=== PATIENT | male | born 1945 | race Hispanic/Latino ===

== ENCOUNTER 2016-06-23 10:06 | Emergency (ER) | payer MEDICARE, MEDICAID ==
[~2016-06-23] VITALS: Ht 172.7 cm; Wt 66.2 kg
[~2016-06-23 10:06] MED LIST: ASPI81TA3 OR; ASPI81TA83 OR; ATEN25TA OR; CHAN0.5P2 PO; CIPR500S PO; COZA50TA18 OR; Centrum Silver PO; VITAMIN D50000 UNT OR
[2016-06-23 11:51] VITALS: BP 142/82
== END 2016-06-23 12:05 | disposition home or self-care (01) ==
LOC: M ED 11:07
DX: H61.21 Impacted cerumen, right ear (principal); F17.200 Nicotine dependence, unspecified, uncomplicated; Z86.73 Personal history of transient ischemic attack (TIA), and cerebral infarction without residual deficits; I25.2 Old myocardial infarction; E78.00 Pure hypercholesterolemia, unspecified; I10 Essential (primary) hypertension; Z86.718 Personal history of other venous thrombosis and embolism; K52.9 Noninfective gastroenteritis and colitis, unspecified; Z79.82 Long term (current) use of aspirin; Z79.899 Other long term (current) drug therapy

== ENCOUNTER 2016-07-12 10:20 | Emergency (ER) | payer MEDICARE, MEDICAID ==
[~2016-07-12] VITALS: Ht 172.7 cm; Wt 68.9 kg
--- NOTE | 2016-07-12 11:57 | REP ---
LEFT HAND SERIES, COMPLETE: 07/12/2016. Clinical history: Trauma, contusion left hand. Findings: Four views are provided. No prior study. The distal radius and ulna are without fracture or focal lesion. Some minor degenerative changes of the radiocarpal articulation in the distal radioulnar joint. Carpal bones and their joint spaces show normal alignment. I see no subluxation or dislocation and some minor degenerative changes are seen. CMC joint of the thumb with minimal degenerative change. Metatarsals are without fracture. There are some degenerative changes of the first MCP joint minimally, the second and fifth DIP joints show narrowing and small spurs. No fracture or avulsion. Soft tissue swelling over the dorsal aspect of the wrist and hand noted. Impression: 1. Some minor degenerative change without fracture, avulsion, subluxation or foreign body. There is some minor soft tissue swelling over the dorsal aspect of the hand. Signed by Carlyle Zhao MD 07/12/2016 08:22 P
[2016-07-12] MEDS ORDERED: TYLE325C PO (12:19)
[2016-07-12 12:47] VITALS: BP 175/91
== END 2016-07-12 12:49 | disposition home or self-care (01) ==
LOC: M ED 11:31
DX: S60.222A Contusion of left hand, initial encounter (principal); W22.8XXA Striking against or struck by other objects, initial encounter; Y92.019 Unspecified place in single-family (private) house as the place of occurrence of the external cause; Y93.89 Activity, other specified; Y99.8 Other external cause status; F17.210 Nicotine dependence, cigarettes, uncomplicated; Z79.82 Long term (current) use of aspirin; Z79.899 Other long term (current) drug therapy; I25.2 Old myocardial infarction; Z86.718 Personal history of other venous thrombosis and embolism; K52.9 Noninfective gastroenteritis and colitis, unspecified

== ENCOUNTER → 2016-08-25 | Outpatient (CLI) | payer MEDICARE, MEDICAID ==
[~2016-08-25] MED LIST changes: +TYLE325C PO
[2016-08-25 09:35] LABS: ALBUMIN 3.2 GM/DL (3.2-5.2); ALBUMIN/GLOBULIN RATIO 1.03 (1.00-1.93); ALKALINE PHOSPHATASE 109 U/L (45-117); ALT/SGPT 33 U/L (12-78); ANION GAP 7 MEQ/L (8-16); AST/SGOT 30 U/L (15-37); BILIRUBIN,TOTAL 0.5 MG/DL (0.2-1.0); BLOOD UREA NITROGEN 13 MG/DL (7-18); CARBON DIOXIDE LEVEL 28 MEQ/L (21-32); CHLORIDE LEVEL 109 MEQ/L (98-107); CHOLESTEROL LEVEL 87 MG/DL (<200); GLOMERULAR FILTRATION RATE > 60.0 (>49); GLUCOSE, FASTING 83 MG/DL (80-110); POTASSIUM SERUM 4.3 MEQ/L (3.5-5.1); SODIUM LEVEL 144 MEQ/L (136-145); TOTAL PROTEIN 6.3 GM/DL (6.4-8.2); TRIGLYCERIDES LEVEL 67 MG/DL (<150)
[2016-08-25 10:00] LABS: MEAN CORPUSCULAR HEMOGLOBIN 32.1 pg (27.0-33.0); MEAN CORPUSCULAR HGB CONC 33.3 g/dl (32.0-36.5); MEAN CORPUSCULAR VOLUME 96.4 fl (80.0-96.0)
[2016-08-25 10:01] LABS: WHITE BLOOD COUNT 6.7 K/mm3 (4.0-10.0)
[2016-08-25 10:02] LABS: BASO % 0.9 % (0.0-1.0); EOS # 0.8 K/mm3 (0.0-0.50); EOS % 12.6 % (0.0-3.0); NEUTROPHILS % 40.7 % (36.0-66.0)
[2016-08-25 10:03] LABS: BASO # 0.1 K/mm3 (0.0-0.2); LYMPH # 2.5 K/mm3 (1.5-4.5); NEUTROPHILS # 2.7 K/mm3 (1.8-7.7)
[2016-08-25 10:04] LABS: MONO # 0.4 K/mm3 (0.0-0.8)
== END ==
LOC: M LAB 08:33
PROVIDERS: ATTEND Physician Assistant Medical
DX: I25.9 Chronic ischemic heart disease, unspecified (principal)

== ENCOUNTER → 2016-08-30 | Outpatient (CLI) | payer MEDICARE, MEDICAID ==
--- NOTE | 2016-09-02 09:16 | REP ---
MR LUMBAR SPINE WITHOUT CONTRAST: HISTORY: Back pain . COMPARISON: 12/25/2014 signal intensity on T2-weighted images is present in the L3-4 and L5-S1 intervertebral discs, the discs are decreased in height. These findings are consistent with disc degeneration. There is no disc bulge or herniation at the L1-2 level. The L1 nerves exit the neural foraminal without compression. A diffuse disc bulge is present at the L2-3 level. There is minimal compression at the thecal sac. There is hypertrophy of the posterior articulating facets. The L2 nerves exit the neural foramina without compression. A diffuse disc bulge is present at the L3-4 level. There is minimal compression of the thecal sac. There is hypertrophy of the posterior articulating facets. The L3 nerves exit the neural foramina without compression. A diffuse disc bulge is present at the L4-5 level. There is hypertrophy of the ligamenta flava and posterior articulating facets. These findings produce minimal central canal stenosis. The L4 nerves exit the neural foraminal without compression. A diffuse disc bulge and small central disc extrusion are present at the L5-S1 level. The disc extrusion is decreased in size. There is minimal compression of the thecal sac and S1 nerves as the exit the thecal sac. There is hypertrophy of the posterior articulating facets. There is compression of the L5 nerves in the neural foramina. The conus medullaris is normal in appearance terminating at the level of the L1-1 intervertebral disc. Increased signal intensity on T2-weighted images is present in the endplates of the L5 and S1 vertebral bodies. This represents degenerative change. IMPRESSION: 1. Diffuse disc bulges at the L2-3 and L3-4 levels with minimal thecal sac compression. 2. Minimal central canal stenosis at the L4-5 level secondary to disc bulge, ligamentous and facet hypertrophy. 3. Diffuse disc bulge and small central disc extrusion at the L5-S1 level with minimal compression of the thecal sac and S1 nerves as they exit the thecal sac. There is compression of the L5 nerves in the neural foramina. The disc extrusion is decreased in size. The L5 nerve compression is a new finding. Signed by Lake Deluna MD 09/02/2016 09:26 A
== END ==
LOC: M RAD 11:35
PROVIDERS: ATTEND Physician Assistant Medical
DX: M51.26 Other intervertebral disc displacement, lumbar region (principal)

== ENCOUNTER → 2016-11-10 | Outpatient (CLI) | payer MEDICARE, MEDICAID ==
[2016-11-10 09:02] LABS: BASO % 0.7 % (0.0-1.0); EOS # 1.2 K/mm3 (0.0-0.50); EOS % 14.6 % (0.0-3.0); LYMPH # 2.2 K/mm3 (1.5-4.5); LYMPH % 24.3 % (24.0-44.0); MEAN CORPUSCULAR HEMOGLOBIN 32.9 pg (27.0-33.0); MEAN CORPUSCULAR HGB CONC 33.9 g/dl (32.0-36.5); MEAN CORPUSCULAR VOLUME 97.2 fl (80.0-96.0); MONO # 0.6 K/mm3 (0.0-0.8); MONO % 6.8 % (0.0-5.0); NEUTROPHILS # 4.2 K/mm3 (1.8-7.7); NEUTROPHILS % 51.2 % (36.0-66.0); RED CELL DISTRIBUTION WIDTH 13.9 % (11.5-14.5); WHITE BLOOD COUNT 8.2 K/mm3 (4.0-10.0)
[2016-11-10 09:36] LABS: ALBUMIN 3.2 GM/DL (3.2-5.2); ALBUMIN/GLOBULIN RATIO 1.03 (1.00-1.93); ALKALINE PHOSPHATASE 136 U/L (45-117); ALT/SGPT 36 U/L (12-78); ANION GAP 3 MEQ/L (8-16); AST/SGOT 30 U/L (15-37); BILIRUBIN,TOTAL 0.3 MG/DL (0.2-1.0); BLOOD UREA NITROGEN 21 MG/DL (7-18); CALCIUM LEVEL 8.4 MG/DL (8.8-10.2); CARBON DIOXIDE LEVEL 32 MEQ/L (21-32); CHLORIDE LEVEL 111 MEQ/L (98-107); CHOLESTEROL LEVEL 60 MG/DL (<200); CREATININE FOR GFR 1.06 MG/DL (0.70-1.30); GLOMERULAR FILTRATION RATE > 60.0 (>49); GLUCOSE, FASTING 68 MG/DL (80-110); POTASSIUM SERUM 4.5 MEQ/L (3.5-5.1); SODIUM LEVEL 146 MEQ/L (136-145); TOTAL PROTEIN 6.3 GM/DL (6.4-8.2); TRIGLYCERIDES LEVEL 56 MG/DL (<150)
== END ==
LOC: M LAB 08:12
PROVIDERS: ATTEND Physician Assistant Medical
DX: I10 Essential (primary) hypertension (principal)

== ENCOUNTER → 2017-01-20 | Outpatient (CLI) | payer MEDICARE, MEDICAID ==
[2017-01-20 13:48] LABS: BASO # 0.1 10^3/uL (0.0-0.2); BASO % 1.3 % (0.0-1.0); EOS # 0.8 10^3/uL (0.0-0.50); EOS % 11.2 % (0.0-3.0); IMMATURE GRANULOCYTE % 0.1 % (0-0); LYMPH # 2.1 10^3/uL (1.5-4.5); LYMPH % 28.6 % (24.0-44.0); MEAN CORPUSCULAR HEMOGLOBIN 32.6 pg (27.0-33.0); MEAN CORPUSCULAR HGB CONC 33.4 g/dl (32.0-36.5); MEAN CORPUSCULAR VOLUME 97.7 fl (80.0-96.0); MONO # 0.7 10^3/uL (0.0-0.8); MONO % 9.4 % (0.0-5.0); NEUTROPHILS # 3.7 10^3/uL (1.8-7.7); NEUTROPHILS % 49.4 % (36.0-66.0); WHITE BLOOD COUNT 7.4 10^3/uL (4.0-10.0)
[2017-01-20 14:42] LABS: ALBUMIN 3.4 GM/DL (3.2-5.2); ALKALINE PHOSPHATASE 130 U/L (45-117); ALT/SGPT 37 U/L (12-78); ANION GAP 6 MEQ/L (8-16); AST/SGOT 39 U/L (15-37); BILIRUBIN,TOTAL 0.5 MG/DL (0.2-1.0); BLOOD UREA NITROGEN 16 MG/DL (7-18); CALCIUM LEVEL 8.3 MG/DL (8.8-10.2); CARBON DIOXIDE LEVEL 28 MEQ/L (21-32); CHLORIDE LEVEL 108 MEQ/L (98-107); CHOLESTEROL LEVEL 56 MG/DL (<200); CREATININE FOR GFR 0.91 MG/DL (0.70-1.30); GLOMERULAR FILTRATION RATE > 60.0 (>49); GLUCOSE, FASTING 77 MG/DL (80-110); POTASSIUM SERUM 4.8 MEQ/L (3.5-5.1); SODIUM LEVEL 142 MEQ/L (136-145); THYROXINE (T4) 6.7 UG/DL (4.5-12.0); TOTAL PROTEIN 6.8 GM/DL (6.4-8.2); TRIGLYCERIDES LEVEL 61 MG/DL (<150)
== END ==
LOC: M LAB 12:42
PROVIDERS: ATTEND Physician Assistant Medical
DX: I10 Essential (primary) hypertension (principal)

== ENCOUNTER → 2017-01-21 | Outpatient (CLI) | payer MEDICARE, MEDICAID ==
--- NOTE | 2017-01-21 12:13 | REP ---
LIMITED PELVIC ULTRASOUND: HISTORY: Right groin pain. A small right inguinal hernia is present. The hernia contains peritoneal fat. The hernia protrudes 3 to 4 cm into the inguinal canal with Valsalva maneuver. Several small lymph nodes are present. IMPRESSION: There is a small inguinal hernia containing peritoneal fat. Signed by Lake Deluna MD 01/21/2017 12:17 P
== END ==
LOC: M RAD 11:03
PROVIDERS: ATTEND Physician Assistant Medical
DX: K40.90 Unilateral inguinal hernia, without obstruction or gangrene, not specified as recurrent (principal)

== ENCOUNTER 2017-03-13 08:21 | Day surgery (SDC) | payer MEDICARE, MEDICAID ==
[~2017-03-13] VITALS: Ht 172.7 cm; Wt 65.3 kg
[~2017-03-13 08:21] MED LIST changes: +CENTTAB36 PO; +LOSA50TA20 PO; +PROPOFOL 200 MG/20 ML VIAL As Ordered ONE
[2017-03-13] MEDS ORDERED: NS 1,000 ML IV ONE (09:00)
--- NOTE | 2017-03-13 09:46 | ROOR ---
Patient Name: Srinath Wild Procedure Date: 03/13/2017 9:24 AM Date of : 1945 Age: 71 Room: [facility] Gender: Male Note Status: Finalized Procedure: Colonoscopy Indications: Screening for colorectal malignant neoplasm Providers: Hill SANTIAGO MD Referring MD: KAMRAN ORTEGA Requesting Provider: Medicines: Monitored Anesthesia Care Complications: No immediate complications. Procedure: Pre-Anesthesia Assessment: - The heart rate, respiratory rate, oxygen saturations, blood pressure, adequacy of pulmonary ventilation, and response to care were monitored throughout the procedure. The Colonoscope was introduced through the anus and advanced to the terminal ileum, with identification of the appendiceal orifice and IC valve. The colonoscopy was performed without difficulty. The patient tolerated the procedure well. The quality of the bowel preparation was adequate. Findings: The perianal and digital rectal examinations were normal. Mild diverticulosis and small internal hemorrhoids. The entire examined colon appeared normal on direct and retroflexion views. Impression: - Mild diverticulosis and small internal hemorrhoids. - The entire examined colon is normal on direct and retroflexion views. - No specimens collected. Recommendation: - Repeat colonoscopy in 10 years for screening purposes. Hill Santiago MD Hill SANTIAGO MD 03/13/2017 9:46:30 AM This report has been signed electronically. Number of Addenda: 0 Note Initiated On: 03/13/2017 9:24 AM Estimated Blood Loss: Estimated blood loss: none.
[2017-03-13 10:15] VITALS: BP 144/76
== END 2017-03-13 10:46 | disposition home or self-care (01) ==
LOC: M OPP 08:21
PROVIDERS: ATTEND Internal Medicine Gastroenterology
DX: Z12.11 Encounter for screening for malignant neoplasm of colon (principal); K64.8 Other hemorrhoids; K57.30 Diverticulosis of large intestine without perforation or abscess without bleeding; I10 Essential (primary) hypertension; E78.00 Pure hypercholesterolemia, unspecified; M19.90 Unspecified osteoarthritis, unspecified site; R06.02 Shortness of breath; I20.9 Angina pectoris, unspecified; K52.9 Noninfective gastroenteritis and colitis, unspecified; Z79.82 Long term (current) use of aspirin; Z79.899 Other long term (current) drug therapy; Z91.013 Allergy to seafood; Z80.0 Family history of malignant neoplasm of digestive organs

== ENCOUNTER → 2017-06-22 | Outpatient (CLI) | payer MEDICARE, MEDICAID ==
[2017-06-22 09:59] LABS: BASO # 0.1 10^3/uL (0.0-0.2); BASO % 1.2 % (0.0-1.0); EOS # 1.1 10^3/uL (0.0-0.50); EOS % 15.1 % (0.0-3.0); HEMATOCRIT 43.5 % (42.0-52.0); HEMOGLOBIN 14.5 g/dl (14.0-18.0); IMMATURE GRANULOCYTE % 0.3 % (0-3.0); LYMPH % 26.7 % (24.0-44.0); MEAN CORPUSCULAR HGB CONC 33.3 g/dl (32.0-36.5); MONO # 0.6 10^3/uL (0.0-0.8); MONO % 7.9 % (0.0-5.0); NEUTROPHILS # 3.6 10^3/uL (1.8-7.7); NEUTROPHILS % 48.8 % (36.0-66.0); PLATELET COUNT, AUTOMATED 278 10^3/uL (150-450); RED BLOOD COUNT 4.53 10^6/uL (4.30-6.10); RED CELL DISTRIBUTION WIDTH 14.2 % (11.5-14.5); WHITE BLOOD COUNT 7.3 10^3/uL (4.0-10.0)
[2017-06-22 10:20] LABS: ESTIMATED AVERAGE GLUCOSE 111 MG/DL (60-110); HEMOGLOBIN A1c 5.5 %
[2017-06-22 10:22] LABS: ALBUMIN 3.7 GM/DL (3.2-5.2); ALBUMIN/GLOBULIN RATIO 1.16 (1.00-1.93); ALKALINE PHOSPHATASE 129 U/L (45-117); ALT/SGPT 24 U/L (12-78); ANION GAP 6 MEQ/L (8-16); AST/SGOT 24 U/L (7-37); BILIRUBIN,TOTAL 0.3 MG/DL (0.2-1.0); BLOOD UREA NITROGEN 19 MG/DL (7-18); CALCIUM LEVEL 8.2 MG/DL (8.8-10.2); CARBON DIOXIDE LEVEL 29 MEQ/L (21-32); CHLORIDE LEVEL 111 MEQ/L (98-107); CHOLESTEROL LEVEL 95 MG/DL (<200); CHOLESTEROL RISK RATIO 3.166 (<5); CREATININE FOR GFR 0.99 MG/DL (0.70-1.30); GLOMERULAR FILTRATION RATE > 60.0 (>42); GLUCOSE, FASTING 61 MG/DL (70-100); HDL CHOLESTEROL 30 MG/DL (>40); LDL CHOLESTEROL 49.4 MG/DL (<100); NON-HDL-C 65 MG/DL; POTASSIUM SERUM 4.3 MEQ/L (3.5-5.1); SODIUM LEVEL 146 MEQ/L (136-145); TOTAL PROTEIN 6.9 GM/DL (6.4-8.2); TRIGLYCERIDES LEVEL 78 MG/DL (<150)
[2017-06-22 11:33] LABS: HEPATITIS C VIRUS ABY INDEX < 0.0 INDEX (<0.8)
[2017-06-22 11:34] LABS: HIV 1&2 SCREEN CENTAUR NEGATIVE (NEGATIVE)
[2017-06-22 11:59] LABS: CHLAMYDIA DNA AMPLIFICATION NEGATIVE (NEGATIVE); GC DNA AMPLIFICATION NEGATIVE (NEGATIVE)
== END ==
LOC: M LAB 08:38
DX: I51.9 Heart disease, unspecified (principal); Z11.3 Encounter for screening for infections with a predominantly sexual mode of transmission; Z13.220 Encounter for screening for lipoid disorders
CPT/HCPCS: 80053

== ENCOUNTER → 2017-11-11 | Outpatient (REF) | payer MEDICARE, MEDICAID ==
[2017-11-11 20:17] LABS: BASO # 0.1 10^3/uL (0.0-0.2); BASO % 1.3 % (0.0-1.0); EOS # 0.5 10^3/uL (0.0-0.50); EOS % 8.9 % (0.0-3.0); HEMATOCRIT 40.3 % (42.0-52.0); HEMOGLOBIN 13.4 g/dl (13.5-17.5); IMMATURE GRANULOCYTE % 0.2 % (0-3.0); LYMPH % 33.2 % (24.0-44.0); MEAN CORPUSCULAR HEMOGLOBIN 33.4 pg (27.0-33.0); MEAN CORPUSCULAR HGB CONC 33.3 g/dl (32.0-36.5); MEAN CORPUSCULAR VOLUME 100.5 fl (80.0-96.0); MONO # 0.5 10^3/uL (0.0-0.8); MONO % 7.4 % (0.0-5.0); PLATELET COUNT, AUTOMATED 297 10^3/uL (150-450); RED BLOOD COUNT 4.01 10^6/uL (4.30-6.10); RED CELL DISTRIBUTION WIDTH 13.5 % (11.5-14.5); WHITE BLOOD COUNT 6.1 10^3/uL (4.0-10.0)
[2017-11-11 20:27] LABS: ALBUMIN 3.3 GM/DL (3.2-5.2); ALBUMIN/GLOBULIN RATIO 1.06 (1.00-1.93); ALKALINE PHOSPHATASE 105 U/L (45-117); ALT/SGPT 29 U/L (12-78); AMYLASE 70 U/L (25-115); ANION GAP 8 MEQ/L (8-16); AST/SGOT 30 U/L (7-37); BILIRUBIN,TOTAL 0.3 MG/DL (0.2-1.0); BLOOD UREA NITROGEN 13 MG/DL (7-18); CALCIUM LEVEL 8.2 MG/DL (8.8-10.2); CARBON DIOXIDE LEVEL 28 MEQ/L (21-32); CHLORIDE LEVEL 111 MEQ/L (98-107); CREATININE FOR GFR 1.01 MG/DL (0.70-1.30); GLOMERULAR FILTRATION RATE > 60.0 (>42); GLUCOSE, FASTING 105 MG/DL (70-100); LIPASE 157 U/L (73-393); POTASSIUM SERUM 4.4 MEQ/L (3.5-5.1); SODIUM LEVEL 147 MEQ/L (136-145); THYROID STIMULATING HORMONE 0.921 uIU/ML (0.358-3.740); TOTAL PROTEIN 6.4 GM/DL (6.4-8.2)
== END ==
LOC: M LAB REF 20:00
DX: R19.7 Diarrhea, unspecified (principal)
CPT/HCPCS: 82150

== ENCOUNTER → 2017-11-13 | Outpatient (CLI) | payer MEDICARE, MEDICAID | LOC: M PLARAD 13:21 | DX: I67.1 Cerebral aneurysm, nonruptured (principal) | CPT/HCPCS: 70544 ==

== ENCOUNTER → 2017-11-20 | Outpatient (CLI) | payer MEDICARE, MEDICAID ==
[~2017-11-20] MED LIST changes: -ASPI81TA3 OR; -ASPI81TA83 OR; -ATEN25TA OR; -CENTTAB36 PO; -CHAN0.5P2 PO; -CIPR500S PO; -COZA50TA18 OR; -Centrum Silver PO; +GASTROGRAFIN SOLUTION 30ML (Q9963) As Ordered; +ISOVUE-370 76% 100ML VIAL (Q9967) As Ordered; -LOSA50TA20 PO; -PROPOFOL 200 MG/20 ML VIAL As Ordered ONE; -TYLE325C PO; -VITAMIN D50000 UNT OR
== END ==
LOC: M RAD 11:40
DX: K50.80 Crohn's disease of both small and large intestine without complications (principal); R19.7 Diarrhea, unspecified; R93.1 Abnormal findings on diagnostic imaging of heart and coronary circulation
CPT/HCPCS: Q9963

== ENCOUNTER 2018-02-03 12:01 | Emergency (ER) | payer MEDICARE, MEDICAID ==
[2018-02-03] MEDS: ONDANSETRON 4MG/2ML VIAL (J2405) IV (12:50)
[2018-02-03 12:54] LABS: BEDSIDE GLUCOSE 122 MG/DL (83-110)
[2018-02-03] MEDS: hydrALAZINE INJ 20 MG/ML VIAL IV (13:01)
[2018-02-03] MEDS: niCARdipine IV 40 MG in APPROPRIATE DILUENT 1 EA IV (13:03)
[2018-02-03 13:05] LABS: BASO % 0.5 % (0.0-1.0); EOS % 13.5 % (0.0-3.0); HEMATOCRIT 36.2 % (42.0-52.0); HEMOGLOBIN 12.4 g/dl (13.5-17.5); IMMATURE GRANULOCYTE % 0.3 % (0-3.0); LYMPH # 1.9 10^3/uL (1.5-4.5); LYMPH % 25.4 % (24.0-44.0); MEAN CORPUSCULAR HEMOGLOBIN 34.3 pg (27.0-33.0); MEAN CORPUSCULAR HGB CONC 34.3 g/dl (32.0-36.5); MONO # 0.6 10^3/uL (0.0-0.8); MONO % 7.5 % (0.0-5.0); NEUTROPHILS # 3.9 10^3/uL (1.8-7.7); NEUTROPHILS % 52.8 % (36.0-66.0); PLATELET COUNT, AUTOMATED 253 10^3/uL (150-450); RED BLOOD COUNT 3.62 10^6/uL (4.30-6.10); RED CELL DISTRIBUTION WIDTH 15.9 % (11.5-14.5); WHITE BLOOD COUNT 7.4 10^3/uL (4.0-10.0)
[2018-02-03 13:16] LABS: INR 1.08; PROTHROMBIN TIME 14.1 SECONDS (12.1-14.4)
[2018-02-03 13:17] LABS: PARTIAL THROMBOPLASTIN TIME 30.9 SECONDS (25.4-37.6)
[2018-02-03] MEDS ORDERED: PROMETHAZINE INJ 25 MG/ML VIAL (J2550) IV (13:30)
[2018-02-03 13:49] LABS: BLOOD UREA NITROGEN 14 MG/DL (7-18); CREATININE FOR GFR 1.05 MG/DL (0.70-1.30); GLOMERULAR FILTRATION RATE > 60.0 (>42); GLUCOSE, FASTING 125 MG/DL (70-100); SODIUM LEVEL 141 MEQ/L (136-145)
[2018-02-03 13:50] LABS: ALKALINE PHOSPHATASE 107 U/L (45-117); ALT/SGPT 25 U/L (12-78); AST/SGOT 49 U/L (7-37); BILIRUBIN,DIRECT < 0.1 MG/DL (0.0-0.2); BILIRUBIN,TOTAL 0.4 MG/DL (0.2-1.0); CARBON DIOXIDE LEVEL 28 MEQ/L (21-32); CHLORIDE LEVEL 108 MEQ/L (98-107); CK-MB VALUE MASS 1.9 NG/ML (<3.6); CPK CREATINE PHOSPHOKINASE 180 U/L (39-308)
[2018-02-03 13:51] LABS: ALBUMIN 3.4 GM/DL (3.2-5.2); TOTAL PROTEIN 6.5 GM/DL (6.4-8.2)
[2018-02-03 13:59] LABS: ANION GAP 5 MEQ/L (8-16); POTASSIUM SERUM 4.6 MEQ/L (3.5-5.1)
[2018-02-03 14:00] LABS: LIPASE 80 U/L (73-393); MB/CK RELATIVE INDEX 0.01 (< OR =4); TROPONIN I 0.04 NG/ML (< 0.10)
== END 2018-02-03 13:22 | disposition short-term general hospital (02) ==
LOC: M ED 12:01
DX: I61.4 Nontraumatic intracerebral hemorrhage in cerebellum (principal); R94.31 Abnormal electrocardiogram [ECG] [EKG]; I10 Essential (primary) hypertension; F17.200 Nicotine dependence, unspecified, uncomplicated; Z86.73 Personal history of transient ischemic attack (TIA), and cerebral infarction without residual deficits
CPT/HCPCS: J2405

== ENCOUNTER → 2018-04-14 | Outpatient (CLI) | payer MEDICARE, MEDICAID ==
[~2018-04-14] MED LIST changes: +ASPI81TA3 OR; +ASPI81TA83 OR; +ATEN25TA OR; +CENTTAB36 PO; +CHAN0.5P3 PO; +CIPR500S PO; +COZA50TA18 OR; +Centrum Silver PO; -GASTROGRAFIN SOLUTION 30ML (Q9963) As Ordered; -ISOVUE-370 76% 100ML VIAL (Q9967) As Ordered; +LOSA50TA88 PO; +TYLE325C PO; +VITAMIN D50000 UNT OR
== END ==
LOC: M RAD 12:14
DX: I61.4 Nontraumatic intracerebral hemorrhage in cerebellum (principal); Z53.8 Procedure and treatment not carried out for other reasons

== ENCOUNTER → 2018-04-23 | Outpatient (CLI) | payer MEDICARE, MEDICAID ==
--- NOTE | 2018-04-23 13:59 | REP ---
MRI BRAIN WITHOUT CONTRAST: HISTORY: Right cerebellar hemorrhage. COMPARISON: MR 11/10/[address] 02/03/2018. Areas of increased signal intensity on T2-weighted images are present in the basal ganglia and right thalami. These represent old lacunar infarctions. Punctate and confluent areas of increased signal intensity on T2-weighted images are present in the periventricular and subcortical white matter and karyn. This represents small vessel ischemic disease. A small focus of decreased signal intensity on T2-weighted images is present in the right medial cerebellum. This represents hemosiderin secondary to a previous intraparenchymal hematoma. There is no acute intraparenchymal hemorrhage, acute infarct, mass or midline shift. The ventricular system and cortical sulci are dilated consistent with mild volume loss. There is no extracerebral collection. A right ocular prosthesis is present. The sinuses are clear. IMPRESSION: 1. 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 2. There is hemosiderin in the right cerebellum secondary to a previous intraparenchymal hematoma. 3. Small vessel ischemic disease. 4. Mild volume loss. Electronically Signed by Lake Deluna MD 04/23/2018 02:05 P
== END ==
LOC: M PLARAD 12:23
PROVIDERS: ATTEND Neurological Surgery
DX: I62.9 Nontraumatic intracranial hemorrhage, unspecified (principal)

== ENCOUNTER → 2018-12-13 | Outpatient (CLI) | payer MEDICARE, MEDICAID ==
[2018-12-13 13:08] LABS: BASO # 0.1 10^3/uL (0.0-0.2); BASO % 1.2 % (0.0-1.0); EOS # 0.9 10^3/uL (0.0-0.5); EOS % 13.7 % (0.0-3.0); HEMOGLOBIN 12.5 g/dl (13.5-17.5); LYMPH # 1.9 10^3/uL (1.5-5.0); LYMPH % 29.3 % (24.0-44.0); MEAN CORPUSCULAR HGB CONC 33.8 g/dl (32.0-36.5); MEAN CORPUSCULAR VOLUME 97.6 fl (80.0-96.0); MONO # 0.6 10^3/uL (0.0-0.8); MONO % 9.1 % (0.0-5.0); NEUTROPHILS % 46.5 % (36.0-66.0); PLATELET COUNT, AUTOMATED 241 10^3/uL (150-450); RED BLOOD COUNT 3.79 10^6/uL (4.30-6.10); WHITE BLOOD COUNT 6.5 10^3/uL (4.0-10.0)
[2018-12-13 13:41] LABS: ALBUMIN 3.2 GM/DL (3.2-5.2); ALT/SGPT 25 U/L (12-78); BILIRUBIN,TOTAL 0.3 MG/DL (0.2-1.0); BLOOD UREA NITROGEN 13 MG/DL (7-18); CALCIUM LEVEL 8.2 MG/DL (8.8-10.2); CARBON DIOXIDE LEVEL 29 MEQ/L (21-32); CHLORIDE LEVEL 110 MEQ/L (98-107); CHOLESTEROL LEVEL 92 MG/DL (<200); CHOLESTEROL RISK RATIO 3.172 (<5); CREATININE FOR GFR 0.95 MG/DL (0.70-1.30); GLOMERULAR FILTRATION RATE > 60.0 (>42); GLUCOSE, FASTING 78 MG/DL (70-100); HDL CHOLESTEROL 29 MG/DL (>40); LDL CHOLESTEROL 49 MG/DL (<100); NON-HDL-C 63 MG/DL; POTASSIUM SERUM 4.3 MEQ/L (3.5-5.1); SODIUM LEVEL 144 MEQ/L (136-145); TRIGLYCERIDES LEVEL 72 MG/DL (<150)
[2018-12-13 14:02] LABS: HEMOGLOBIN A1c 5.5 %
--- NOTE | 2018-12-13 15:18 | REP ---
CT of the abdomen pelvis without contrast Indication: Left lower quadrant pain. Comparison: CT of the abdomen and pelvis with contrast of 11/20/2017. Technique: Axial CT of the abdomen pelvis was performed without contrast. Coronal and sagittal reformatted images were provided as well as lung reformats of the lung bases. Findings: There is calcification in the left ventricular apex, similar to prior. There is mild scarring and/or atelectasis within the lung bases including 6 mm nodularity at the right lung base (image 14). There is no pleural or pericardial effusion. Within the limitation of a noncontrast enhanced CT examination, the unenhanced liver, spleen, adrenal glands, right kidney and pancreas are unremarkable. There is redemonstration of a single gallstone within the partially distended gallbladder. There is similar appearance of left renal cysts and left renal cortical scarring. There is no hydronephrosis or nephrolithiasis. There are scattered calcifications of the abdominal aorta and its branches. Unopacified stomach, small and large bowel loops are normal in caliber. There is diffuse soft tissue stranding of the peritoneal fat. There is no intraperitoneal free air or free fluid. There is mild diffuse thickening of the urinary bladder out of proportion for the degree of underdistension, but unchanged. There are scattered tiny pelvic phleboliths. There is no urinary bladder calculus. The prostate is present. There is a fat containing left inguinal hernia. There is lumbar spondylosis with endplate degenerative changes, most notably at L5-S1. There are Schmorl's nodes deformities along the superior endplates of L4 and L5. No suspicious focal osseous lesion is identified. The subcutaneous soft tissues are unremarkable. Impression: Within the limitations of a noncontrast enhanced CT examination, no acute abdominopelvic abnormality. Similar left renal cysts and scarring. No evidence of hydronephrosis or nephrolithiasis. Mild diffuse thickening of the urinary bladder. No urinary bladder calculus. Nonspecific diffuse soft tissue stranding of the peritoneal fat. No intraperitoneal free air or free fluid. Cholelithiasis, unchanged. Fat containing left inguinal hernia. 6 mm nodularity within the right lung base which could represent atelectasis and/or scarring. Lumbar spondylosis. Electronically Signed by Scottie Figueroa MD 12/13/2018 03:09 P
== END ==
LOC: M LAB 12:11
PROVIDERS: ATTEND Nurse Practitioner Family
DX: Z00.01 Encounter for general adult medical examination with abnormal findings (principal); R10.32 Left lower quadrant pain; M47.816 Spondylosis without myelopathy or radiculopathy, lumbar region; K40.90 Unilateral inguinal hernia, without obstruction or gangrene, not specified as recurrent; M51.46 Schmorl's nodes, lumbar region; N28.1 Cyst of kidney, acquired; K80.20 Calculus of gallbladder without cholecystitis without obstruction; R91.8 Other nonspecific abnormal finding of lung field

== ENCOUNTER → 2019-01-11 | Outpatient (CLI) | payer MEDICARE, MEDICAID ==
--- NOTE | 2019-01-11 11:55 | REP ---
CT of the chest without IV contrast to evaluate a non specific abnormal finding of the lung vidal. The most recent comparison is a chest CT is dated 11/11/2011. The most recent plain film PA and lateral study of the chest is dated 11/10/2011 and the most recent portable plain film study of the chest dated 02/03/2018. There are no infiltrates. There are no pleural effusions. There is bronchiectasis. This was also present previously. There are the following lung nodules: Image 49, right upper lobe, 5 mm, not present previously. Image 63, left lower lobe, a tiny calcific pleural plaque. Image 67, left lower lobe, 3 mm calcified granuloma. Image 80, left lower lobe, pleural-based 10 mm nodule, unchanged. There is curvilinear scarring in the lower lobes. There is no mediastinal or axillary lymphadenopathy. The study is insensitive for hilar lymphadenopathy in the absence of IV contrast. Cardiac size is enlarged. There is atheromatous calcification versus stent in the anterior descending coronary artery. 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 Upper abdomen: There are small cysts in the upper pole of the left kidney. The adrenals are unremarkable. The unenhanced visualized portions of the liver, gallbladder, pancreas and spleen are unremarkable. Impression: Bronchiectasis. Bilateral lower lobe scarring. Nodules as described. Left anterior descending coronary artery calcified atheroma versus stent. 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 Cardiomegaly. Electronically Signed by Jairon Rainey MD 01/11/2019 11:47 A
== END ==
LOC: M RAD 10:20
PROVIDERS: ATTEND Internal Medicine Pulmonary Disease
DX: R91.8 Other nonspecific abnormal finding of lung field (principal); N28.1 Cyst of kidney, acquired; J47.9 Bronchiectasis, uncomplicated; J98.4 Other disorders of lung; I51.7 Cardiomegaly

== ENCOUNTER → 2019-01-20 | Outpatient (CLI) | payer MEDICARE, MEDICAID ==
--- NOTE | 2019-01-20 14:17 | PFTRPT ---
Height: 68.00 Inches Weight: 140.00 Lbs BSA: 1.76 Diagnosis: R91.8 DATE OF STUDY: 01/20/2019 ORDERED BY: Dr. Rae Spirometry: Pre and post bronchodilator study of excellent technical quality. Forced vital capacity reduced. FEV1 in proportion. Obstructive index is, therefore, normal. Flow Volume Loop: Expiratory limb of the flow volume loop does suggest some nonspecific flow rate limitation. No significant bronchodilator response identified. Lung Volumes: Total lung capacity reduced. Residual volume suggests concomitant air trapping. Diffusing Capacity: Diffusing capacity is severely reduced but is appropriate for alveolar volume. Hemoglobin: Hemoglobin acceptable at 13.3. Airway Mechanics: Airway resistance and conductance are normal. IMPRESSION: Mild restrictive ventilatory impairment with concomitant underlying air trapping. Please correlate clinically. MTDD
== END ==
LOC: M CARPUL 13:18
PROVIDERS: ATTEND Internal Medicine Pulmonary Disease
DX: R91.8 Other nonspecific abnormal finding of lung field (principal)

== ENCOUNTER → 2019-07-21 | Outpatient (CLI) | payer MEDICARE, MEDICAID ==
--- NOTE | 2019-07-22 05:40 | REP ---
Clinical: Follow up abnormal lung findings. Technique: Axial noncontrast images from the thoracic inlet to the upper abdomen with coronal and sagittal re-formations. Comparison: 01/11/2019, 11/11/2011. Findings: The lung vidal again demonstrate chronic relatively stable interstitial changes with mild bronchiectasis and mild scarring primarily involving the lower lobes (left greater than right). The 5 mm nodule identified in the right upper lobe has essentially resolved. The pleural-based noncalcified density along the lateral aspect of the left lung base/lingula represents scarring and is unchanged. Calcified plaque and calcified granuloma represent chronic insignificant findings. No new acute consolidation, significant nodule or mass. No pleural effusion. No pneumothorax. Mediastinum again demonstrates atherosclerotic changes to the thoracic aorta and coronary arteries along with coronary artery stenting and calcifications at the cardiac apex which may represent small aneurysm or prior infarction. No pericardial effusion. No adenopathy. Surrounding musculoskeletal structures without acute osseous abnormality. Impression: 1. Previously identified density in the basilar right upper lobe has essentially resolved. 2. Chronic stable changes. 3. No new acute mediastinal or pleuroparenchymal process. Electronically Signed by Thomas Hua MD 07/22/2019 05:32 A
== END ==
LOC: M RAD 10:36
PROVIDERS: ATTEND Internal Medicine Pulmonary Disease
DX: R91.8 Other nonspecific abnormal finding of lung field (principal)

== ENCOUNTER 2019-10-04 10:30 | Emergency (ER) | payer MEDICARE, MEDICAID ==
[~2019-10-04] VITALS: Ht 172.7 cm; Wt 67.1 kg
[2019-10-04] MEDS ORDERED: COZA100T2 (10:38)
[2019-10-04] MEDS ORDERED: NIFE1TAB52 (10:38)
[2019-10-04] MEDS ORDERED: TENO1TAB3 (10:38)
[2019-10-04] MEDS ORDERED: ASPI81CH33 PO (10:38)
[2019-10-04] MEDS ORDERED: traMADol 50 MG TAB PO ONE (11:00)
--- NOTE | 2019-10-04 11:46 | REP ---
Clinical: Right knee pain. Technique: AP, lateral, bilateral oblique and sunrise views of the right knee. Findings: Moderate tricompartmental arthritic changes are appreciated including increase sclerosis to the medial plateau with minimal joint space narrowing, cortical irregularities to the femoral condyles, increased sclerosis along the anterior patellar margin with decreased patellofemoral joint space and marginal patellar spurring. No acute fracture dislocation. Impression: Moderate tricompartmental osteoarthritic changes. No acute fracture or dislocation. Electronically Signed by Thomas Hua MD 10/04/2019 11:38 A
[2019-10-04] MEDS ORDERED: TRAM50TA2 PO (12:17)
[2019-10-04 12:27] VITALS: BP 150/90
== END 2019-10-04 12:29 | disposition home or self-care (01) ==
LOC: M ED 10:30
DX: M17.11 Unilateral primary osteoarthritis, right knee (principal); I10 Essential (primary) hypertension

== ENCOUNTER → 2020-02-28 | Outpatient (REF) | payer MEDICARE, MEDICAID ==
[~2020-02-28] MED LIST changes: +ASPI81CH33 PO; +COZA100T2; +NIFE1TAB52; +TENO1TAB3; +TRAM50TA2 PO
[2020-02-28 12:16] LABS: BASO # 0.1 10^3/uL (0.0-0.2); EOS # 1.5 10^3/uL (0.0-0.5); EOS % 16.5 % (0.0-3.0); HEMATOCRIT 39.4 % (42.0-52.0); HEMOGLOBIN 12.8 g/dl (13.5-17.5); LYMPH # 3.3 10^3/uL (1.5-5.0); LYMPH % 35.6 % (24.0-44.0); MEAN CORPUSCULAR HEMOGLOBIN 31.1 pg (27.0-33.0); MEAN CORPUSCULAR HGB CONC 32.5 g/dl (32.0-36.5); MEAN CORPUSCULAR VOLUME 95.6 fl (80.0-96.0); MONO # 0.8 10^3/uL (0.0-0.8); MONO % 8.5 % (0.0-5.0); NEUTROPHILS # 3.5 10^3/uL (1.5-8.5); NEUTROPHILS % 38.3 % (36.0-66.0); PLATELET COUNT, AUTOMATED 292 10^3/uL (150-450); RED BLOOD COUNT 4.12 10^6/uL (4.30-6.10); WHITE BLOOD COUNT 9.1 10^3/uL (4.0-10.0)
[2020-02-28 12:45] LABS: ALBUMIN 3.7 GM/DL (3.2-5.2); ALT/SGPT 30 U/L (12-78); BILIRUBIN,TOTAL 0.4 MG/DL (0.2-1.0); BLOOD UREA NITROGEN 21 MG/DL (7-18); CALCIUM LEVEL 8.6 MG/DL (8.8-10.2); CARBON DIOXIDE LEVEL 29 MEQ/L (21-32); CHLORIDE LEVEL 109 MEQ/L (98-107); CHOLESTEROL LEVEL 102 MG/DL (<200); CHOLESTEROL RISK RATIO 3.187 (<5); CREATININE FOR GFR 1.19 MG/DL (0.70-1.30); GLOMERULAR FILTRATION RATE > 60.0 (>42); GLUCOSE, FASTING 85 MG/DL (70-100); HDL CHOLESTEROL 32 MG/DL (>40); LDL CHOLESTEROL 49 MG/DL (<100); NON-HDL-C 70 MG/DL; POTASSIUM SERUM 4.4 MEQ/L (3.5-5.1); SODIUM LEVEL 142 MEQ/L (136-145); TOTAL PROTEIN 6.7 GM/DL (6.4-8.2); TRIGLYCERIDES LEVEL 105 MG/DL (<150)
[2020-02-28 12:53] LABS: TOTAL 25(OH) VITAMIN D 17.6 NG/ML (30.0-100.0)
[2020-02-28 14:15] LABS: HEMOGLOBIN A1c 5.2 %
== END ==
LOC: M LAB REF 11:31
PROVIDERS: ATTEND Nurse Practitioner Family
DX: Z13.9 Encounter for screening, unspecified (principal); I51.9 Heart disease, unspecified; Z13.1 Encounter for screening for diabetes mellitus; Z13.220 Encounter for screening for lipoid disorders; I10 Essential (primary) hypertension; F17.200 Nicotine dependence, unspecified, uncomplicated; Z79.899 Other long term (current) drug therapy

== ENCOUNTER → 2020-03-18 | Outpatient (CLI) | payer MEDICARE, MEDICAID ==
[~2020-03-18] MED LIST changes: +ADVI200T PO; +ATEN25TA PO; -COZA100T2; +COZA100T2 PO; +THERTAB52 PO
== END ==
LOC: M LABSMTC 08:02
PROVIDERS: ATTEND Anesthesiology
DX: Z01.818 Encounter for other preprocedural examination (principal); Z20.828 Contact with and (suspected) exposure to other viral communicable diseases

== ENCOUNTER → 2020-03-19 | Outpatient (CLI) | payer MEDICARE, MEDICAID ==
[~2020-03-19] MED LIST changes: +ASPI81TA26 PO; +NIFE30TA50 PO
[2020-03-19 12:02] LABS: INR 1.07; PROTHROMBIN TIME 14.1 SECONDS (12.5-14.3)
--- NOTE | 2020-03-19 13:53 | REP ---
INDICATION: R KNEE OSTEOARTHRITIS COMPARISON: 02/03/2018. TECHNIQUE: PA/Lateral FINDINGS: Lungs: Clear, no infiltrate. Heart: There is mild cardiomegaly. Mediastinum: Mediastinal silhouette unremarkable. Pleural angles: There is chronic blunting and pleural thickening at the left costophrenic sulcus.. Bones and soft tissues: Unremarkable. IMPRESSION: No acute pulmonary disease. <Electronically signed by Jairon Meadows > 03/19/20 [id number]
--- NOTE | 2020-03-20 08:33 | ECGEPIP ---
[facility] Test Date: 2020-03-19 Pat Name: RICHARD HUSTON Department: Room: - Gender: Male Subscription Agent: : [id number] Requested By: Eliel Porras Order Number: [id number] Reading MD: Polo Villa Measurements Intervals [place] Rate: 63 P: -14 [place]: 214 QRS: -43 QRSD: 100 T: -88 QT: 413 QTc: 425 Interpretive Statements Normal sinus rhythm at 63 bpm. LA conduction disturbance. First-degree AV block Extreme left axis deviation consistent with left anterior hemiblock Rule out prior AWMI/IWMI Prominent inferoapical ST/T wave abnormalities Slightly different precordial lead placement but otherwise unchanged from 1 02/03/18. Electronically Signed on 03-20-2020 8:32:39 EST by Polo Villa
== END ==
LOC: M LAB 10:57
PROVIDERS: ATTEND Orthopaedic Surgery
DX: M17.11 Unilateral primary osteoarthritis, right knee (principal)

== ENCOUNTER 2020-03-23 09:00 | Inpatient (IN) | payer MEDICARE, MEDICAID ==
--- NOTE | 2020-03-21 08:48 | HPE ---
HISTORY AND PHYSICAL DATE OF ADMISSION: 03/23/2020 ATTENDING PHYSICIAN: Eliel Porras MD CHIEF COMPLAINT: Right knee pain and stiffness. HISTORY: This is a 74-year-old male patient with progressively worsening right knee pain and stiffness who has failed to improve with conservative management. He has elected for surgery for his continued symptoms. X-rays notable for end-stage degenerative changes of the right knee with [id number] in the medial compartment. He has been consented by Dr. Porras for a right total knee arthroplasty. Medical optimization, Nurse Practitioner Ulises, not present for review. ALLERGIES: No known drug allergies. CURRENT MEDICATIONS: - atenolol 25 mg - nifedipine extended release 30 mg - losartan 100 mg - tramadol 50 mg for pain control MEDICAL CONDITIONS: Include hypertension, coronary artery disease, history of a myocardial infarction ([place]), history of stroke. FAMILY HISTORY: Arthritis, diabetes, hypertension, and coronary artery disease. SOCIAL HISTORY: He is a former smoker. Alcohol: He denies alcohol use. He is currently not employed. REVIEW OF SYSTEMS: Denies fever or chills. Denies chest pain, shortness of breath, or cough. Denies difficulty breathing. Notes persistent pain with weightbearing activities and activities of daily living. Denies exposure to COVID-19. Denies nausea or vomiting. PHYSICAL EXAMINATION: Exam today reveals a male patient that ambulates with a limping gait and favors his right side. Range of motion is 5-120 degrees. There is irritability at the extremes of range of motion. Skin is intact. The skin is intact, no erythema, edema, or ecchymosis. There is decreased tone in the quadriceps noted on exam in comparison to the contralateral side. There is tenderness mainly medially. Patellar grind at 0. The calf is soft, nontender to palpation, can sensate light touch. Dorsalis pedis and posterior tibial pulses are palpable. Neck is supple without adenopathy or jugular venous distension (JVD). Lungs are clear to auscultation without rales or wheeze. Heart: Regular rate and rhythm. Abdomen: Bowel sounds are present. Current height 67 inches, weight 153 pounds, temperature 96.3, blood pressure 138/86, respirations 16, pulse 76. LABORATORY DATA: WBC count of 9.1, RBC count 4.1, hemoglobin 12.8, hematocrit 39.7, glucose, 85, BUN 21, potassium 4.4, sodium 142, INR and PT notable for ProTime of 14.1, INR 1.07, sedimentation rate at 10. His chest x-ray and EKG are not present for review nor is the medical optimization from Nurse Practitioner Ulises. IMPRESSION: Symptomatic osteoarthritis of the right knee. PLAN: We reviewed his preoperative and postoperative instructions. He does only speak mainly [place] and he does seem to grasp the understanding of what we are doing and he does have a grasp of [place] enough to know the plan. I talked to him about nothing by mouth after midnight and what that means, that he should only take the medicines as directed by his primary. He will followup with us after his surgery. He knows his preoperative and postoperative instructions. He understands to be on time. We reviewed the importance of calling the day before to find out what time he needs to be there. New consents were signed today.
[~2020-03-23] VITALS: Ht 172.7 cm; Wt 68.9 kg
[2020-03-23] VITALS (7 sets, daily range): BP systolic 156–193; BP diastolic 86–130
[~2020-03-23 09:00] MED LIST changes: -ASPI81TA26 PO; +LR 1,000 ML IV ONE; +MIDAZOLAM INJ 2MG/2ML VIAL (J2250 PER 1MG) IV PRN; -NIFE30TA50 PO; +ceFAZolin SOD 2 GM in IV 1 EA IV ONE; +fentaNYL 100 MCG/2 ML INJECTION (J3010) IV PRN
[2020-03-23] MEDS ORDERED: fentaNYL 100 MCG/2 ML INJECTION (J3010) As Ordered ONE ×2 (10:26→10:55)
[2020-03-23] MEDS ORDERED: propofoL 500 MG/50 ML VIAL As Ordered ONE (10:26)
[2020-03-23] MEDS ORDERED: ONDANSETRON 4MG/2ML VIAL As Ordered ONE ×2 (10:27→10:55)
[2020-03-23] MEDS ORDERED: LIDOCAINE 2% 100MG/5ML SDV (FOR ANES.) As Ordered ONE (10:27)
[2020-03-23] MEDS ORDERED: ROPIvacaine 0.5% 30ML INJECTION (J2795 PER 1MG) XX ONE (10:30)
[2020-03-23] MEDS ORDERED: EPINEPHrine INJ 1 MG/ML 1ML AMP XX ONE (10:30)
[2020-03-23] MEDS ORDERED: dexameTHASONE 10MG/1ML VIAL PRES.FREE (J1100 PER 1MG) XX ONE (10:30)
[2020-03-23] MEDS ORDERED: propofoL 200 MG/20 ML VIAL As Ordered ONE ×2 (10:53→10:54)
[2020-03-23] MEDS ORDERED: dexameTHASONE 4 MG/ML 1ML VIAL (J1100 PER 1MG) As Ordered ONE (10:54)
[2020-03-23] MEDS ORDERED: ROCURONIUM BROMIDE 50 MG/5 ML VIAL As Ordered ONE (10:54)
[2020-03-23] MEDS ORDERED: HYDROmorphone HCL 2 MG/ML 1ML VIAL (J1170) As Ordered ONE (10:55)
[2020-03-23] MEDS ORDERED: MIDAZOLAM INJ 2MG/2ML VIAL (J2250 PER 1MG) As Ordered ONE (11:04)
[2020-03-23] MEDS ORDERED: TRANEXAMIC ACID 100 MG/ML 10ML VIAL As Ordered ONE (11:52)
[2020-03-23] MEDS ORDERED: ceFAZolin 1GM VIAL (J0690 PER 500MG) As Ordered ONE (11:53)
[2020-03-23] MEDS ORDERED: EPINEPHrine INJ 1 MG/ML 1ML AMP As Ordered ONE (11:53)
[2020-03-23] MEDS ORDERED: BUPIVACAINE LIPOSOME/PF 1.3% 20ML VIAL (13.3MG/ML)(EXPAREL)(C9290 PER1MG) As Ordered ONE (11:53)
[2020-03-23] MEDS ORDERED: BUPIVACAINE HCL 0.25% 10ML VIAL As Ordered ONE (11:53)
[2020-03-23] MEDS ORDERED: ACETAMINOPHEN 1000MG 100ML IV BTL (OFIRMEV) (J0131 PER 10MG) As Ordered ONE (12:38)
--- NOTE | 2020-03-23 13:11 | IPN ---
PROGRESS NOTE DATE: 04/02/2020 SUBJECTIVE AND PLAN: Patient seen and examined. Discussed with him the nature and risk of the procedure with an central sterilization technician. He wishes to go ahead with a right total knee arthroplasty. He understands the nature of this, the risks of bleeding, infection, damage to nerves and vessels, persistent pain, beebe loosening, blood clots, medical problems, among others. He was recently re-consented.
[2020-03-23] MEDS ORDERED: SUGAMMADEX SODIUM 500 MG/5 ML VIAL (BRIDION) As Ordered ONE (13:31)
[2020-03-23] MEDS ORDERED: ePHEDrine SULFATE 25 MG/5 ML(5MG/ML) SYRINGE As Ordered ONE (13:33)
[2020-03-23] MEDS ORDERED: ONDANSETRON 4MG/2ML VIAL IV PRN ×2 (14:15→15:15)
[2020-03-23] MEDS ORDERED: LR 1,000 ML IV SCH ×2 (14:15→15:15)
[2020-03-23] MEDS ORDERED: oxyCODONE 5MG TAB PO PRN (14:15)
[2020-03-23] MEDS: fentaNYL 100 MCG/2 ML INJECTION (J3010) IV PRN ×4 (14:21→14:45)
--- NOTE | 2020-03-23 14:32 | REP ---
INDICATION: POST OP PACU COMPARISON: None. TECHNIQUE: Two views. FINDINGS: There is a total knee arthroplasty with the components tightly applied and in satisfactory positions and alignment. Skin vidal are incidentally noted. IMPRESSION: Right knee arthroplasty as described. <Electronically signed by Jairon Rainey > 03/23/20 [id number]
[2020-03-23] MEDS ORDERED: traMADol 50 MG TAB PO PRN (15:15)
[2020-03-23] MEDS ORDERED: ACETAMINOPHEN TAB 650MG DOSE (2X325MG) PO PRN (15:15)
[2020-03-23] MEDS ORDERED: MORPHINE 4 MG/ML 1ML VIAL/SYRINGE (J2270) IV PRN (15:15)
[2020-03-23] MEDS ORDERED: MORPHINE 2 MG/ML 1ML VIAL (J2270) IV PRN (15:15)
[2020-03-23] MEDS: PERCOCET 5MG/325MG TAB PO PRN (16:26)
[2020-03-23 16:48] LABS: HEMATOCRIT 37.2 % (42.0-52.0); HEMOGLOBIN 12.5 g/dl (13.5-17.5); MEAN CORPUSCULAR HEMOGLOBIN 32.1 pg (27.0-33.0); MEAN CORPUSCULAR HGB CONC 33.6 g/dl (32.0-36.5); MEAN CORPUSCULAR VOLUME 95.6 fl (80.0-96.0); PLATELET COUNT, AUTOMATED 282 10^3/uL (150-450); RED BLOOD COUNT 3.89 10^6/uL (4.30-6.10); WHITE BLOOD COUNT 7.8 10^3/uL (4.0-10.0)
[2020-03-23] MEDS ORDERED: NIFE30TA50 PO (17:11)
[2020-03-23] MEDS ORDERED: ASPI81TA26 PO (17:11)
[2020-03-23] MEDS ORDERED: IBUPROFEN 200MG TAB PO PRN (18:45)
--- NOTE | 2020-03-23 18:50 | HPEPDOC ---
[facility] Medical History & Physical Date of Admission Mar 23, 2020 Date of Service: Mar 23, 2020 History and Physical CHIEF COMPLAINT: Right knee pain HISTORY OF PRESENT ILLNESS: 74 yo M PMHx HTN, CAD, CVA who been having lots of R knee stiffness and pain and failed conservative management and opted to have R knee arthroplasty which was successfully completed by Dr. oPrras 03/23/2020. I was consulted to evaluate and manage the patients chronic medical problems. He tells me he hasn't taken of his medications in 2 days. PAST MEDICAL HISTORY: HTN CAD 2003 CVA 2x PAST SURGICAL HISTORY: He denies any other surgeries prior to today SOCIAL HISTORY: Denies alcohol use Denies tobacco use currently, smoker prior Denies illicit drug use FAMILY HISTORY: Reviewed and noncontributory ALLERGIES: Please see below. REVIEW OF SYSTEMS: 10 point review of systems complete all negative otherwise stated in HPI HOME MEDICATIONS: Please see below. PHYSICAL EXAMINATION: Constitutional: Awake and alert, in no apparent distress ENT: Sclera are clear. Mucosa is moist. Respiratory: Lungs CTA bilaterally. No respiratory distress. No use of accessory muscles. Cardiovascular: RRR S1 and S2 are normal Gastrointestinal: Abdomen is soft, non distended, non tender, BS present. Musculoskeletal: No edema. R knee is bandaged and leg on pillow elevated. Neurologic: No focal neurological deficit. Mental Status: A&O x3, normal affect Skin: Warm, dry LABORATORY DATA: See below. MICROBIOLOGY: Please see below. ASSESSMENT/PLAN 74M Hx HTN, CAD, CVA, s/p R knee arthroplasty 03/23/2020, I'm consulted to manage patients chronic medical problems # R Knee arthroplasty: per primary orthopedics team. Pain control. # HTN: hasn't taken anti-hypertensives for two days. Continue home meds, first dose tonight. Monitor and titrate. # CVA/CAD: ASA, Statin. # DVT prophylaxis: per primary Thank you for the opportunity to consult and care for this patient with you. I will continue to follow the patient with you intermittently as needed. A Youse[facility] Hospitalist Vital Signs Vital Signs Date Time Temp Pulse Resp B/P (MAP) Pulse Ox O2 Delivery O2 Flow Rate FiO2 03/23/20 17:40 97.4 65 18 193/104 (133) 99 Room Air 03/23/20 14:45 2.0 Laboratory Data Labs 24H Laboratory Tests 2 03/23/20 16:15: Nucleated Red Blood Cells % (auto) 0.0 CBC/BMP Laboratory Tests 03/23/20 16:15 Home Medications Scheduled Aspirin (Aspirin EC) 81 Mg Tablet.dr, 81 MG PO DAILY Atenolol (Atenolol) 25 Mg Tablet, 25 MG PO DAILY Losartan Potassium (Cozaar) 100 Mg Tablet, 100 MG PO DAILY Multivitamin,Therapeutic (Thera-Tabs) 1 Each Tablet, 1 TAB PO DAILY Nifedipine (Nifedipine ER) 30 Mg Tablet.er, 30 MG PO DAILY Scheduled PRN Ibuprofen (Advil) 200 Mg Tablet, 200 MG PO Q6H PRN for PAIN Allergies Coded Allergies: SEAFOOD (Verified Allergy, Unknown, 03/14/20) A-FIB/CHADSVASC A-FIB History Current/History of A-Fib/PAF?: No GRETA CARLSON MD Mar 23, 2020 18:50
[2020-03-23 19:20] LABS: BLOOD UREA NITROGEN 14 MG/DL (7-18); CALCIUM LEVEL 7.9 MG/DL (8.8-10.2); CARBON DIOXIDE LEVEL 25 MEQ/L (21-32); CHLORIDE LEVEL 111 MEQ/L (98-107); CREATININE FOR GFR 1.18 MG/DL (0.70-1.30); GLOMERULAR FILTRATION RATE > 60.0 (>42); GLUCOSE, FASTING 132 MG/DL (70-100); POTASSIUM SERUM 4.2 MEQ/L (3.5-5.1); SODIUM LEVEL 143 MEQ/L (136-145)
[2020-03-23] MEDS ORDERED: ceFAZolin SOD 2 GM in IV 1 EA IV SCH (20:00)
[2020-03-23] MEDS: LOSARTAN 50MG TABLET PO SCH (20:15)
[2020-03-23] MEDS: atenoloL 25 MG TAB PO SCH (20:16)
[2020-03-23] MEDS: NIFEdipine 30 MG XL TAB PO SCH (20:16)
[2020-03-24 01:51] VITALS: BP 132/80
[2020-03-24 06:16] VITALS: BP 124/78
[2020-03-24] MEDS ORDERED: PERC5TAB12 PO (06:52)
[2020-03-24] MEDS ORDERED: XARE10TA PO (06:52)
[2020-03-24 07:56] LABS: HEMATOCRIT 32.9 % (42.0-52.0); HEMOGLOBIN 10.9 g/dl (13.5-17.5); MEAN CORPUSCULAR HEMOGLOBIN 31.1 pg (27.0-33.0); MEAN CORPUSCULAR HGB CONC 33.1 g/dl (32.0-36.5); MEAN CORPUSCULAR VOLUME 93.7 fl (80.0-96.0); PLATELET COUNT, AUTOMATED 251 10^3/uL (150-450); RED BLOOD COUNT 3.51 10^6/uL (4.30-6.10); WHITE BLOOD COUNT 11.7 10^3/uL (4.0-10.0)
[2020-03-24] MEDS: LOSARTAN 50MG TABLET PO SCH (09:00)
[2020-03-24] MEDS: NIFEdipine 30 MG XL TAB PO SCH (09:00)
[2020-03-24] MEDS: MIRALAX *UNIT DOSE* 17GM PACKET PO SCH (09:35)
[2020-03-24] MEDS: atenoloL 25 MG TAB PO SCH (09:35)
[2020-03-24] MEDS: PERCOCET 5MG/325MG TAB PO PRN ×3 (09:36→20:16)
[2020-03-24] MEDS: ASPIRIN 81 MG ENTERIC TAB PO SCH (09:36)
[2020-03-24] MEDS: ATORVASTATIN 20 MG TAB PO SCH (09:36)
[2020-03-24] MEDS: MOM 30ML SUSPENSION UDC PO SCH (09:36)
--- NOTE | 2020-03-24 10:20 | RO ---
OPERATIVE NOTE DATE OF OPERATION: 03/23/2020 PREOPERATIVE DIAGNOSIS: Right knee osteoarthritis. POSTOPERATIVE DIAGNOSIS: Right knee osteoarthritis. PROCEDURE: Right total knee arthroplasty using an Attune rotating platform, cruciate retaining size 4 femur, size 6 tibial tray, 8 polyethylene, 35 patellar button. SURGEON: Eliel Porras M.D. LINE INSPECTOR: Mitali Porras ANESTHESIA: General. ESTIMATED BLOOD LOSS: 50 cc COMPLICATIONS: None. OPERATIVE PROCEDURE: The patient was taken to the operating room, placed in the supine position. After general anesthesia was induced, the right lower extremity was prepped and draped in the usual sterile fashion. A time-out was performed, tourniquet was inflated. A longitudinal incision was made over the anterior aspect of the right knee and a medial parapatellar arthrotomy was performed per routine. I flexed the knee up and everted the patella, removed some osteophytes and used a canal initiating reamer on the femoral side set at 5 degrees of valgus and 9 mm cut. This was pinned in place. A distal femoral cut was made and the femur was sized to be a 4. Size 4 cutting block secured after the drill holes were placed at the end of the femur and this was secured down and the remaining cuts were made with the appropriate external rotation dialed in. Excess bone was removed. I then prepared the tibia. I freed up the PCL attachment and placed the retractors. The tibial alignment guide was then placed in the appropriate amount of valgus and posterior slope. The proximal tibial cut was made removing about 4 mm off the low side. I then used the melter operator to remove soft tissue and osteophytes from either side of the knee and then used the spacer blocks and determined that probably an 8 was most appropriate for thickness. I then spread tibial surface. The size 6 tray fit nicely. This was drilled in place, broached and the trial components were placed. I was very pleased with the alignment and position and stability. I had done a medial release at the beginning and it did extend this a little bit with the dowling. But overall the components fit very nicely and well aligned and there was no lift off of the femoral component and flexion. The patella was then prepared, free hand cut, 7 mm of bone removed and a size 35 button was placed. This was drilled and the patella tracked very nicely. I then drilled the holes in the end of the femur. The computer lab assistant prepared the bone cement in a modern technique. I removed the trial component, irrigated copiously, placed the Exparel in the deep tissues including the posterior capsule, but aspirating first. Dried the bony surfaces, cemented in the components and held the patella in place with a clamp, removed all excess bone cement. I again irrigated as I had multiple times, placed the TXA in the deep tissue. Repair the deep layer with #1 Vicryl suture and running STRATAFIX and then irrigated the deep layer prior to final wound closure and repaired the remaining wound with a running STRATAFIX. I irrigated the subcutaneous tissues closed with 2-0 Vicryl, closed the skin with vidal. I deflated the tourniquet when the cement hardened and the patellar clamp had been removed at that point. Sterile dressing was applied. The patient was taken to the recovery room in stable condition. There were no known complications. The plan will be routine postop. The computer lab assistant was instrumental in holding retractors and assisting mixing the bone cement and assisting in wound closure.
[2020-03-24] MEDS: RIVAROXABAN 10 MG TAB (XARELTO) PO SCH (17:35)
[2020-03-24 20:00] VITALS: BP 128/66
[2020-03-25 05:38] LABS: HEMATOCRIT 31.8 % (42.0-52.0); HEMOGLOBIN 10.3 g/dl (13.5-17.5); MEAN CORPUSCULAR HEMOGLOBIN 30.6 pg (27.0-33.0); MEAN CORPUSCULAR HGB CONC 32.4 g/dl (32.0-36.5); MEAN CORPUSCULAR VOLUME 94.4 fl (80.0-96.0); PLATELET COUNT, AUTOMATED 245 10^3/uL (150-450); RED BLOOD COUNT 3.37 10^6/uL (4.30-6.10)
[2020-03-25 05:50] VITALS: BP 133/77
[2020-03-25] MEDS: MOM 30ML SUSPENSION UDC PO SCH (09:10)
[2020-03-25] MEDS: MIRALAX *UNIT DOSE* 17GM PACKET PO SCH (09:10)
[2020-03-25] MEDS: ASPIRIN 81 MG ENTERIC TAB PO SCH (09:12)
[2020-03-25] MEDS: ATORVASTATIN 20 MG TAB PO SCH (09:12)
[2020-03-25] MEDS: PERCOCET 5MG/325MG TAB PO PRN ×3 (09:12→22:15)
[2020-03-25] MEDS: atenoloL 25 MG TAB PO SCH (09:13)
[2020-03-25] MEDS: LOSARTAN 50MG TABLET PO SCH (09:13)
[2020-03-25] MEDS: NIFEdipine 30 MG XL TAB PO SCH (09:13)
[2020-03-25 14:00] VITALS: BP 116/68
[2020-03-25] MEDS: RIVAROXABAN 10 MG TAB (XARELTO) PO SCH (17:23)
[2020-03-25 22:00] VITALS: BP 120/72
[2020-03-25] MEDS ORDERED: RAMELTEON 8 MG TAB (ROZEREM) PO PRN (22:00)
[2020-03-26] MEDS: PERCOCET 5MG/325MG TAB PO PRN (05:53)
[2020-03-26 06:00] VITALS: BP 121/67
[2020-03-26 06:58] LABS: MEAN CORPUSCULAR HEMOGLOBIN 31.3 pg (27.0-33.0); MEAN CORPUSCULAR HGB CONC 32.4 g/dl (32.0-36.5); MEAN CORPUSCULAR VOLUME 96.9 fl (80.0-96.0); PLATELET COUNT, AUTOMATED 254 10^3/uL (150-450); RED BLOOD COUNT 3.51 10^6/uL (4.30-6.10); WHITE BLOOD COUNT 8.1 10^3/uL (4.0-10.0)
[2020-03-26] MEDS: MOM 30ML SUSPENSION UDC PO SCH (08:55)
[2020-03-26] MEDS: MIRALAX *UNIT DOSE* 17GM PACKET PO SCH (08:55)
[2020-03-26 08:56] VITALS: BP 113/64
[2020-03-26] MEDS: ASPIRIN 81 MG ENTERIC TAB PO SCH (08:56)
[2020-03-26] MEDS: atenoloL 25 MG TAB PO SCH (08:56)
[2020-03-26] MEDS: ATORVASTATIN 20 MG TAB PO SCH (08:56)
[2020-03-26] MEDS: NIFEdipine 30 MG XL TAB PO SCH (08:57)
[2020-03-26] MEDS: LOSARTAN 50MG TABLET PO SCH (08:57)
== END 2020-03-26 11:45 | disposition home or self-care (01) | DRG 470 ==
LOC: M OR 09:00 → M MS5PR 15:35
PROVIDERS: ADMIT Orthopaedic Surgery; ATTEND Orthopaedic Surgery
PROC: 0SRC0J9 Replacement of Right Knee Joint with Synthetic Substitute, Cemented, Open Approach (ICD-10-PCS; principal; 2020-03-23 11:50)
DX: M17.11 Unilateral primary osteoarthritis, right knee (principal); Z79.899 Other long term (current) drug therapy; I10 Essential (primary) hypertension; I25.10 Atherosclerotic heart disease of native coronary artery without angina pectoris; I25.2 Old myocardial infarction; Z86.73 Personal history of transient ischemic attack (TIA), and cerebral infarction without residual deficits; Z87.891 Personal history of nicotine dependence; Z79.82 Long term (current) use of aspirin; Z91.013 Allergy to seafood

== ENCOUNTER → 2020-07-16 | Outpatient (REF) | payer MEDICARE, MEDICAID ==
[~2020-07-16] MED LIST changes: +ASPI81TA26 PO; -LR 1,000 ML IV ONE; -MIDAZOLAM INJ 2MG/2ML VIAL (J2250 PER 1MG) IV PRN; +NIFE30TA50 PO; +PERC5TAB12 PO; +XARE10TA PO; -ceFAZolin SOD 2 GM in IV 1 EA IV ONE; -fentaNYL 100 MCG/2 ML INJECTION (J3010) IV PRN
[2020-07-16 17:13] LABS: BASO # 0.1 10^3/uL (0.0-0.2); BASO % 1.1 % (0.0-1.0); EOS # 0.7 10^3/uL (0.0-0.5); EOS % 9.9 % (0.0-3.0); HEMATOCRIT 37.5 % (42.0-52.0); HEMOGLOBIN 12.4 g/dl (13.5-17.5); LYMPH # 2.9 10^3/uL (1.5-5.0); LYMPH % 38.4 % (24.0-44.0); MEAN CORPUSCULAR HEMOGLOBIN 32.5 pg (27.0-33.0); MEAN CORPUSCULAR HGB CONC 33.1 g/dl (32.0-36.5); MEAN CORPUSCULAR VOLUME 98.4 fl (80.0-96.0); MONO # 0.6 10^3/uL (0.0-0.8); MONO % 7.8 % (2.0-8.0); NEUTROPHILS # 3.2 10^3/uL (1.5-8.5); NEUTROPHILS % 42.7 % (36.0-66.0); PLATELET COUNT, AUTOMATED 280 10^3/uL (150-450); RED BLOOD COUNT 3.81 10^6/uL (4.30-6.10); WHITE BLOOD COUNT 7.5 10^3/uL (4.0-10.0)
[2020-07-16 17:33] LABS: ALBUMIN 3.7 GM/DL (3.2-5.2); ALT/SGPT 32 U/L (12-78); BILIRUBIN,TOTAL 0.4 MG/DL (0.2-1.0); BLOOD UREA NITROGEN 18 MG/DL (7-18); CALCIUM LEVEL 8.7 MG/DL (8.8-10.2); CARBON DIOXIDE LEVEL 28 MEQ/L (21-32); CHLORIDE LEVEL 109 MEQ/L (98-107); CHOLESTEROL LEVEL 99 MG/DL (<200); CREATININE FOR GFR 0.97 MG/DL (0.70-1.30); GLOMERULAR FILTRATION RATE > 60.0 (>42); GLUCOSE, FASTING 90 MG/DL (70-100); HDL CHOLESTEROL 33 MG/DL (>40); LDL CHOLESTEROL 46 MG/DL (<100); NON-HDL-C 66 MG/DL; POTASSIUM SERUM 4.4 MEQ/L (3.5-5.1); SODIUM LEVEL 141 MEQ/L (136-145); TOTAL PROTEIN 6.6 GM/DL (6.4-8.2); TRIGLYCERIDES LEVEL 102 MG/DL (<150)
== END ==
LOC: M LAB REF 16:19
PROVIDERS: ATTEND Nurse Practitioner Family
DX: I10 Essential (primary) hypertension (principal)

== ENCOUNTER → 2020-11-16 | Outpatient (CLI) | payer MEDICARE, MEDICAID ==
--- NOTE | 2020-11-16 14:41 | REP ---
INDICATION: M67.432 GANGLION, LEFT WRIST. COMPARISON: None. TECHNIQUE: Three views FINDINGS: A soft tissue nodule is noted adjacent to the distal portion of the ulna. Who linear calcifications are noted in the distal forearm in 2 locations. There are no fractures. The bone texture is normal paired IMPRESSION: Soft tissue nodule adjacent to the distal ulna. Soft tissue calcifications. No bony abnormality. <Electronically signed by Alphonso Rangel > 11/16/20 [id number]
== END ==
LOC: M WUC 14:08
PROVIDERS: ATTEND Physician Assistant
DX: M67.432 Ganglion, left wrist (principal)

== ENCOUNTER 2020-12-12 13:35 | Emergency (ER) | payer MEDICARE, MEDICAID ==
[2020-12-12 13:36] VITALS: BP 135/70
== END 2020-12-12 17:00 | disposition left against medical advice (07) ==
LOC: M ED 13:35
DX: Z53.21 Procedure and treatment not carried out due to patient leaving prior to being seen by health care provider (principal)

== ENCOUNTER → 2021-08-24 | Outpatient (CLI) | payer MEDICARE, MEDICAID ==
[~2021-08-24] MED LIST changes: +LOSA50TA28 PO; -LOSA50TA88 PO
== END ==
LOC: M RAD 10:17
PROVIDERS: ATTEND Family Medicine Addiction Medicine
DX: R05.9 Cough, unspecified (principal)

== ENCOUNTER 2021-10-30 18:05 | Emergency (ER) | payer MEDICARE, MEDICAID ==
[~2021-10-30] VITALS: Ht 172.7 cm; Wt 57.7 kg
[2021-10-30 18:06] VITALS: BP 136/65
== END 2021-10-30 20:26 | disposition left against medical advice (07) ==
LOC: M ED 18:05
DX: Z53.21 Procedure and treatment not carried out due to patient leaving prior to being seen by health care provider (principal)

== ENCOUNTER → 2021-11-11 | Outpatient (CLI) | payer MEDICARE, MEDICAID ==
[~2021-11-11] MED LIST changes: +ISOVUE-370 76% 100ML VIAL As Ordered ONE
== END ==
LOC: M RAD 12:07
PROVIDERS: ATTEND Psychiatry & Neurology Neurology
DX: I67.1 Cerebral aneurysm, nonruptured (principal); R20.2 Paresthesia of skin; I62.9 Nontraumatic intracranial hemorrhage, unspecified
CPT/HCPCS: 70450; 70496; Q9967

== ENCOUNTER → 2021-11-14 | Outpatient (CLI) | payer MEDICARE, MEDICAID ==
[~2021-11-14] MED LIST changes: -ISOVUE-370 76% 100ML VIAL As Ordered ONE
== END ==
LOC: M RAD 10:54
PROVIDERS: ATTEND Family Medicine Addiction Medicine
DX: K40.90 Unilateral inguinal hernia, without obstruction or gangrene, not specified as recurrent (principal)

== ENCOUNTER → 2022-01-22 | Outpatient (CLI) | payer MEDICARE, MEDICAID | LOC: M LAB 11:55 | PROVIDERS: ATTEND Family Medicine Addiction Medicine | DX: D64.9 Anemia, unspecified (principal) ==

== ENCOUNTER → 2022-01-29 | Outpatient (REF) | payer MEDICARE, MEDICAID ==
[~2022-01-29] MED LIST changes: +[UNRECOGNIZED DRUG - REMARK]
[2022-01-29 16:46] LABS: BASO # 0.1 10^3/uL (0.0-0.2); BASO % 1.5 % (0.0-1.0); EOS # 0.6 10^3/uL (0.0-0.5); EOS % 10.4 % (0.0-3.0); HEMATOCRIT 30.4 % (42.0-52.0); HEMOGLOBIN 10.5 g/dl (13.5-17.5); LYMPH # 2.2 10^3/uL (1.5-5.0); LYMPH % 37.9 % (24.0-44.0); MEAN CORPUSCULAR HEMOGLOBIN 41.7 pg (27.0-33.0); MEAN CORPUSCULAR HGB CONC 34.5 g/dl (32.0-36.5); MONO # 0.6 10^3/uL (0.0-0.8); MONO % 9.4 % (2.0-8.0); NEUTROPHILS # 2.4 10^3/uL (1.5-8.5); NEUTROPHILS % 40.6 % (36.0-66.0); PLATELET COUNT, AUTOMATED 389 10^3/uL (150-450); RED BLOOD COUNT 2.52 10^6/uL (4.30-6.10); WHITE BLOOD COUNT 5.9 10^3/uL (4.0-10.0)
[2022-01-29 16:52] LABS: MEAN CORPUSCULAR VOLUME 120.6 fl (80.0-96.0)
[2022-01-29 19:16] LABS: PLATELET ESTIMATE NORMAL (NORMAL)
[2022-01-29 19:31] LABS: POIKILOCYTOSIS 1+
== END ==
LOC: M LAB REF 16:17
PROVIDERS: ATTEND Family Medicine Addiction Medicine
DX: E53.8 Deficiency of other specified B group vitamins (principal)

== ENCOUNTER → 2022-01-30 | Outpatient (CLI) | payer MEDICARE, MEDICAID | LOC: M LABSMTC 09:11 | PROVIDERS: ATTEND Anesthesiology | DX: Z01.812 Encounter for preprocedural laboratory examination (principal); Z11.52 Encounter for screening for COVID-19 ==

== ENCOUNTER 2022-02-04 06:05 | Day surgery (SDC) | payer MEDICARE, MEDICAID ==
[~2022-02-04] VITALS: Ht 172.7 cm; Wt 61.7 kg
[~2022-02-04 06:05] MED LIST changes: +ceFAZolin SOD 2 GM in IV 1 EA IV ONE
[2022-02-04 06:34] VITALS: BP 180/90
[2022-02-04 06:35] LABS: HEMATOCRIT 32.6 % (42.0-52.0); HEMOGLOBIN 10.8 g/dl (13.5-17.5); MEAN CORPUSCULAR HEMOGLOBIN 39.7 pg (27.0-33.0); MEAN CORPUSCULAR HGB CONC 33.1 g/dl (32.0-36.5); PLATELET COUNT, AUTOMATED 246 10^3/uL (150-450); RED BLOOD COUNT 2.72 10^6/uL (4.30-6.10); WHITE BLOOD COUNT 6.5 10^3/uL (4.0-10.0)
[2022-02-04 06:46] LABS: MEAN CORPUSCULAR VOLUME 119.9 fl (80.0-96.0)
[2022-02-04 07:08] LABS: BLOOD UREA NITROGEN 19 MG/DL (7-18); CALCIUM LEVEL 8.1 MG/DL (8.8-10.2); CARBON DIOXIDE LEVEL 28 MEQ/L (21-32); CHLORIDE LEVEL 114 MEQ/L (98-107); CREATININE FOR GFR 1.09 MG/DL (0.70-1.30); GLOMERULAR FILTRATION RATE > 60.0 (>42); GLUCOSE, FASTING 87 MG/DL (70-100); POTASSIUM SERUM 4.4 MEQ/L (3.5-5.1); SODIUM LEVEL 145 MEQ/L (136-145)
[2022-02-04] MEDS ORDERED: BUPIVACAINE/EPIN 0.25% 30 ML VIAL As Ordered ONE (07:10)
[2022-02-04] MEDS ORDERED: fentaNYL 100 MCG/2 ML INJECTION As Ordered ONE (07:14)
[2022-02-04] MEDS ORDERED: propofoL 200 MG/20 ML VIAL As Ordered ONE (07:15)
[2022-02-04] MEDS ORDERED: dexameTHASONE 4 MG/ML 1ML VIAL (J1100 PER 1MG) As Ordered ONE (07:15)
[2022-02-04] MEDS ORDERED: ONDANSETRON 4MG 2ML VIAL As Ordered ONE (07:15)
[2022-02-04] MEDS ORDERED: LIDOCAINE 2% 100MG/5ML SDV (FOR ANES.) As Ordered ONE (07:15)
[2022-02-04] MEDS ORDERED: ROCURONIUM BROMIDE 50 MG/5 ML VIAL As Ordered ONE (07:15)
[2022-02-04] MEDS ORDERED: MIDAZOLAM INJ 2MG/2ML VIAL (J2250 PER 1MG) As Ordered ONE (07:15)
== END 2022-02-04 07:33 | disposition home or self-care (01) ==
LOC: M SDC 06:05
PROVIDERS: ATTEND Surgery
DX: K40.90 Unilateral inguinal hernia, without obstruction or gangrene, not specified as recurrent (principal); Z53.09 Procedure and treatment not carried out because of other contraindication; R94.31 Abnormal electrocardiogram [ECG] [EKG]
CPT/HCPCS: 36415; 80048; 85027; 93005; J1100

== ENCOUNTER → 2022-02-07 | Outpatient (REF) | payer MEDICARE, MEDICAID ==
[~2022-02-07] MED LIST changes: -ceFAZolin SOD 2 GM in IV 1 EA IV ONE
[2022-02-07 12:22] LABS: BASO # 0.1 10^3/uL (0.0-0.2); BASO % 1.7 % (0.0-1.0); EOS # 0.6 10^3/uL (0.0-0.5); EOS % 11.9 % (0.0-3.0); HEMATOCRIT 34.7 % (42.0-52.0); HEMOGLOBIN 11.6 g/dl (13.5-17.5); LYMPH # 1.8 10^3/uL (1.5-5.0); MEAN CORPUSCULAR HEMOGLOBIN 39.2 pg (27.0-33.0); MEAN CORPUSCULAR HGB CONC 33.4 g/dl (32.0-36.5); MONO # 0.5 10^3/uL (0.0-0.8); NEUTROPHILS # 2.3 10^3/uL (1.5-8.5); NEUTROPHILS % 43.2 % (36.0-66.0); PLATELET COUNT, AUTOMATED 242 10^3/uL (150-450); RED BLOOD COUNT 2.96 10^6/uL (4.30-6.10); WHITE BLOOD COUNT 5.2 10^3/uL (4.0-10.0)
[2022-02-07 12:28] LABS: MEAN CORPUSCULAR VOLUME 117.2 fl (80.0-96.0)
[2022-02-07 12:50] LABS: PLATELET ESTIMATE NORMAL (NORMAL)
[2022-02-07 13:32] LABS: ALBUMIN 3.6 GM/DL (3.2-5.2); ALT/SGPT 27 U/L (12-78); BILIRUBIN,TOTAL 0.5 MG/DL (0.2-1.0); BLOOD UREA NITROGEN 16 MG/DL (7-18); CALCIUM LEVEL 8.5 MG/DL (8.8-10.2); CARBON DIOXIDE LEVEL 27 MEQ/L (21-32); CHLORIDE LEVEL 112 MEQ/L (98-107); CHOLESTEROL LEVEL 88 MG/DL (<200); CHOLESTEROL RISK RATIO 3.142 (<5); CREATININE FOR GFR 1.13 MG/DL (0.70-1.30); GLOMERULAR FILTRATION RATE > 60.0 (>42); GLUCOSE, FASTING 77 MG/DL (70-100); HDL CHOLESTEROL 28 MG/DL (>40); LDL CHOLESTEROL 45 MG/DL (<100); NON-HDL-C 60 MG/DL; POTASSIUM SERUM 4.2 MEQ/L (3.5-5.1); SODIUM LEVEL 143 MEQ/L (136-145); TOTAL PROTEIN 6.7 GM/DL (6.4-8.2); TRIGLYCERIDES LEVEL 77 MG/DL (<150)
== END ==
LOC: M LAB REF 11:57
PROVIDERS: ATTEND Family Medicine Addiction Medicine
DX: Z00.00 Encounter for general adult medical examination without abnormal findings (principal); I10 Essential (primary) hypertension; R79.1 Abnormal coagulation profile

== ENCOUNTER → 2022-02-12 | Outpatient (REF) | payer MEDICARE, MEDICAID ==
[2022-02-12 18:07] LABS: ALBUMIN 3.5 GM/DL (3.2-5.2); ALKALINE PHOSPHATASE 124 U/L (45-117); ALT/SGPT 25 U/L (12-78); AST/SGOT 29 U/L (7-37); BILIRUBIN,TOTAL 0.5 MG/DL (0.2-1.0); BLOOD UREA NITROGEN 9 MG/DL (7-18); CALCIUM LEVEL 8.5 MG/DL (8.8-10.2); CARBON DIOXIDE LEVEL 29 MEQ/L (21-32); CHLORIDE LEVEL 110 MEQ/L (98-107); CREATININE FOR GFR 1.04 MG/DL (0.70-1.30); GLOMERULAR FILTRATION RATE > 60.0 (>42); GLUCOSE, FASTING 85 MG/DL (70-100); POTASSIUM SERUM 4.4 MEQ/L (3.5-5.1); SODIUM LEVEL 144 MEQ/L (136-145); TOTAL PROTEIN 6.6 GM/DL (6.4-8.2)
== END ==
LOC: M LAB REF 16:52
PROVIDERS: ATTEND Family Medicine Addiction Medicine
DX: I10 Essential (primary) hypertension (principal)

== ENCOUNTER → 2022-02-18 | Outpatient (CLI) | payer MEDICARE, MEDICAID ==
[2022-02-18 15:34] LABS: ALBUMIN 3.7 G/DL (3.2-5.2); ALT/SGPT 17 U/L (7.0-40); BILIRUBIN,TOTAL 0.5 MG/DL (0.3-1.2); BLOOD UREA NITROGEN 16 MG/DL (9-23); CALCIUM LEVEL 8.2 MG/DL (8.3-10.6); CARBON DIOXIDE LEVEL 26 MMOL/L (20-31); CHLORIDE LEVEL 105 MMOL/L (98-107); CREATININE FOR GFR 1.07 MG/DL (0.70-1.30); GLOMERULAR FILTRATION RATE > 60.0 (>42); GLUCOSE, FASTING 74 MG/DL (74-106); POTASSIUM SERUM 4.1 MMOL/L (3.5-5.1); SODIUM LEVEL 141 MMOL/L (136-145); TOTAL PROTEIN 6.6 G/DL
== END ==
LOC: M LAB 11:19
PROVIDERS: ATTEND Family Medicine Addiction Medicine
DX: Z01.818 Encounter for other preprocedural examination (principal); I10 Essential (primary) hypertension

== ENCOUNTER 2022-07-17 02:52 | Emergency (ER) | payer MEDICARE, MEDICAID ==
[~2022-07-17] VITALS: Ht 172.7 cm; Wt 59.1 kg
[~2022-07-17 02:52] MED LIST changes: -COZA100T2 PO; +COZA100T3 PO
[2022-07-17 06:47] LABS: BASO # 0.1 10^3/uL (0.0-0.2); BASO % 0.9 % (0.0-1.0); EOS # 0.7 10^3/uL (0.0-0.5); EOS % 11.5 % (0.0-3.0); HEMATOCRIT 40.6 % (42.0-52.0); HEMOGLOBIN 13.1 g/dl (13.5-17.5); LYMPH # 2.4 10^3/uL (1.5-5.0); LYMPH % 37.8 % (24.0-44.0); MEAN CORPUSCULAR HEMOGLOBIN 31.4 pg (27.0-33.0); MEAN CORPUSCULAR HGB CONC 32.3 g/dl (32.0-36.5); MEAN CORPUSCULAR VOLUME 97.4 fl (80.0-96.0); MONO # 0.5 10^3/uL (0.0-0.8); MONO % 7.3 % (2.0-8.0); NEUTROPHILS # 2.7 10^3/uL (1.5-8.5); NEUTROPHILS % 42.3 % (36.0-66.0); PLATELET COUNT, AUTOMATED 215 10^3/uL (150-450); RED BLOOD COUNT 4.17 10^6/uL (4.30-6.10); WHITE BLOOD COUNT 6.5 10^3/uL (4.0-10.0)
[2022-07-17] MEDS ORDERED: KETOROLAC 30 MG/ML 1ML VIAL IV ONE (07:15)
[2022-07-17] MEDS ORDERED: atenoloL 25 MG TAB PO ONE (07:15)
[2022-07-17] MEDS ORDERED: LOSARTAN 50MG TABLET PO ONE (07:15)
[2022-07-17] MEDS ORDERED: NIFEdipine 30MG XL TAB PO STA (07:15)
[2022-07-17 08:20] VITALS: BP 172/93
[2022-07-17 09:09] LABS: BLOOD UREA NITROGEN 18 MG/DL (9-23); CALCIUM LEVEL 8.5 MG/DL (8.3-10.6); CARBON DIOXIDE LEVEL 32 MMOL/L (20-31); CHLORIDE LEVEL 107 MMOL/L (98-107); CREATININE FOR GFR 1.12 MG/DL (0.70-1.30); GLOMERULAR FILTRATION RATE > 60.0 (>42); GLUCOSE, FASTING 86 MG/DL (74-106); POTASSIUM SERUM 5.7 MMOL/L (3.5-5.1); SODIUM LEVEL 140 MMOL/L (136-145)
[2022-07-17] MEDS ORDERED: PATIROMER SORBITEX CALCIUM 8.4 GM POWDER PACKET (VELTASSA) PO ONE (09:40)
[2022-07-17 09:59] VITALS: BP 171/82
[2022-07-18] MEDS ORDERED: LOSA100T45 PO (13:39)
[2022-07-18] MEDS ORDERED: ACET500T15 PO (13:39)
[2022-07-18] MEDS ORDERED: BAYE81TA10 PO (13:39)
== END 2022-07-17 10:00 | disposition home or self-care (01) ==
LOC: M ED 02:52
DX: K40.90 Unilateral inguinal hernia, without obstruction or gangrene, not specified as recurrent (principal); I10 Essential (primary) hypertension; E87.5 Hyperkalemia; I25.2 Old myocardial infarction; F17.200 Nicotine dependence, unspecified, uncomplicated; Z86.79 Personal history of other diseases of the circulatory system; Z91.013 Allergy to seafood; Z79.811 Long term (current) use of aromatase inhibitors; Z79.82 Long term (current) use of aspirin; Z79.899 Other long term (current) drug therapy

== ENCOUNTER → 2022-07-18 | Outpatient (CLI) | payer MEDICARE, MEDICAID ==
[~2022-07-18] MED LIST changes: +ACET500T15 PO; +BAYE81TA10 PO; +LOSA100T45 PO
[2022-07-18 13:06] LABS: BLOOD UREA NITROGEN 18 MG/DL (9-23); CALCIUM LEVEL 8.3 MG/DL (8.3-10.6); CARBON DIOXIDE LEVEL 28 MMOL/L (20-31); CHLORIDE LEVEL 108 MMOL/L (98-107); CREATININE FOR GFR 1.22 MG/DL (0.70-1.30); GLOMERULAR FILTRATION RATE > 60.0 (>42); GLUCOSE, FASTING 80 MG/DL (74-106); POTASSIUM SERUM 4.8 MMOL/L (3.5-5.1); SODIUM LEVEL 140 MMOL/L (136-145)
== END ==
LOC: M LAB 11:18
PROVIDERS: ATTEND Physician Assistant
DX: E87.5 Hyperkalemia (principal)

== ENCOUNTER 2022-09-13 18:42 | Emergency (ER) | payer MEDICARE, MEDICAID ==
[~2022-09-13] VITALS: Ht 172.7 cm; Wt 57.6 kg
[~2022-09-13 18:42] MED LIST changes: -LOSA100T45 PO; +LOSA100T46 PO
[2022-09-13] MEDS ORDERED: ONDANSETRON 4MG 2ML VIAL IV ONE (20:10)
[2022-09-13] MEDS ORDERED: NS 1,000 ML IV ONE (20:10)
[2022-09-13] MEDS ORDERED: MORPHINE 4 MG/ML 1ML VIAL IV ONE (20:15)
[2022-09-13 20:56] LABS: BASO # 0.1 10^3/uL (0.0-0.2); BASO % 0.8 % (0.0-1.0); EOS # 0.6 10^3/uL (0.0-0.5); EOS % 8.9 % (0.0-3.0); HEMOGLOBIN 12.1 g/dl (13.5-17.5); LYMPH # 2.1 10^3/uL (1.5-5.0); LYMPH % 33.8 % (24.0-44.0); MEAN CORPUSCULAR HEMOGLOBIN 32.4 pg (27.0-33.0); MEAN CORPUSCULAR HGB CONC 33.6 g/dl (32.0-36.5); MEAN CORPUSCULAR VOLUME 96.3 fl (80.0-96.0); MONO # 0.6 10^3/uL (0.0-0.8); MONO % 9.2 % (2.0-8.0); NEUTROPHILS % 47.1 % (36.0-66.0); PLATELET COUNT, AUTOMATED 213 10^3/uL (150-450); RED BLOOD COUNT 3.74 10^6/uL (4.30-6.10); WHITE BLOOD COUNT 6.3 10^3/uL (4.0-10.0)
[2022-09-13 21:18] LABS: LIPASE 64 U/L (12-53)
[2022-09-13 21:20] LABS: ALBUMIN 3.5 G/DL (3.2-5.2); ALKALINE PHOSPHATASE 105 U/L (46-116); ALT/SGPT 16 U/L (7.0-40); AST/SGOT 20 U/L (<34); BILIRUBIN,DIRECT 0.2 MG/DL (<0.4); BILIRUBIN,TOTAL 0.3 MG/DL (0.3-1.2); BLOOD UREA NITROGEN 17 MG/DL (9-23); CALCIUM LEVEL 8.1 MG/DL (8.3-10.6); CARBON DIOXIDE LEVEL 31 MMOL/L (20-31); CHLORIDE LEVEL 110 MMOL/L (98-107); CREATININE FOR GFR 1.05 MG/DL (0.70-1.30); GLOMERULAR FILTRATION RATE > 60.0 (>42); GLUCOSE, FASTING 89 MG/DL (74-106); POTASSIUM SERUM 4.2 MMOL/L (3.5-5.1); SODIUM LEVEL 144 MMOL/L (136-145); TOTAL PROTEIN 6.1 G/DL (5.7-8.2)
[2022-09-13] MEDS ORDERED: ISOVUE-370 76% 100ML VIAL As Ordered ONE (21:59)
[2022-09-13 23:30] VITALS: BP 148/81; TEMP 98.1; O2SAT 95
== END 2022-09-14 00:04 | disposition home or self-care (01) ==
LOC: M ED 18:42
DX: K40.91 Unilateral inguinal hernia, without obstruction or gangrene, recurrent (principal); Z86.79 Personal history of other diseases of the circulatory system; Z86.718 Personal history of other venous thrombosis and embolism; Z91.013 Allergy to seafood; Z79.82 Long term (current) use of aspirin; Z79.811 Long term (current) use of aromatase inhibitors; Z79.899 Other long term (current) drug therapy
CPT/HCPCS: 74177; 80048; 80076; 83605; 83690; 85025; 93041; 96361; 96374; 99285; J2405; Q9967

== ENCOUNTER → 2022-09-26 | Outpatient (CLI) | payer MEDICARE, MEDICAID ==
[~2022-09-26] MED LIST changes: +NIFE-3 PO; -NIFE30TA50 PO
== END ==
LOC: M RAD 12:19
PROVIDERS: ATTEND Family Medicine Addiction Medicine
DX: M25.521 Pain in right elbow (principal)

== ENCOUNTER → 2022-10-10 | Outpatient (REF) | payer MEDICARE ==
[2022-10-10 14:39] LABS: BASO # 0.1 10^3/uL (0.0-0.2); BASO % 1.3 % (0.0-1.0); EOS # 0.8 10^3/uL (0.0-0.5); HEMATOCRIT 40.7 % (42.0-52.0); HEMOGLOBIN 13.3 g/dl (13.5-17.5); LYMPH # 2.6 10^3/uL (1.5-5.0); LYMPH % 37.7 % (24.0-44.0); MEAN CORPUSCULAR HEMOGLOBIN 31.7 pg (27.0-33.0); MEAN CORPUSCULAR HGB CONC 32.7 g/dl (32.0-36.5); MEAN CORPUSCULAR VOLUME 96.9 fl (80.0-96.0); MONO # 0.6 10^3/uL (0.0-0.8); MONO % 7.9 % (2.0-8.0); NEUTROPHILS # 2.9 10^3/uL (1.5-8.5); PLATELET COUNT, AUTOMATED 211 10^3/uL (150-450)
[2022-10-10 15:06] LABS: ALBUMIN 3.5 G/DL (3.2-5.2); BILIRUBIN,TOTAL 0.4 MG/DL (0.3-1.2); CALCIUM LEVEL 9.1 MG/DL (8.3-10.6); CREATININE FOR GFR 1.25 MG/DL (0.70-1.30); GLOMERULAR FILTRATION RATE 59.9 (>42); POTASSIUM SERUM 4.3 MMOL/L (3.5-5.1); TOTAL PROTEIN 6.4 G/DL (5.7-8.2)
[2022-10-10 15:09] LABS: THYROID STIMULATING HORMONE 2.854 uIU/ML (0.55-4.78)
[2022-10-10 15:10] LABS: FREE T4 0.86 NG/DL (0.89-1.76)
[2022-10-12 15:11] LABS: PSA TOTAL 0.5 ng/mL (0.0-4.0)
== END ==
LOC: M LAB REF 12:43
PROVIDERS: ATTEND Family Medicine Addiction Medicine
DX: Z12.5 Encounter for screening for malignant neoplasm of prostate (principal); R63.4 Abnormal weight loss

== ENCOUNTER 2022-12-16 10:32 | Emergency (ER) | payer MEDICARE ==
[~2022-12-16] VITALS: Ht 172.7 cm; Wt 57.4 kg
[~2022-12-16 10:32] MED LIST changes: -COZA100T3 PO; +LOSA-530 PO
[2022-12-16] MEDS ORDERED: NORCO, ANEXSIA 5/325MG TABLET (HYDROcodone/ACETAMINOPHEN) PO ONE (12:30)
[2022-12-16] MEDS ORDERED: COLA100C5 PO (12:33)
[2022-12-16] MEDS ORDERED: HYDR-3713 PO (12:33)
[2022-12-16 12:56] VITALS: BP 142/68; TEMP 97.9; O2SAT 98
== END 2022-12-16 12:59 | disposition home or self-care (01) ==
LOC: M ED 10:32
DX: K40.90 Unilateral inguinal hernia, without obstruction or gangrene, not specified as recurrent (principal); I25.2 Old myocardial infarction; I10 Essential (primary) hypertension; E78.5 Hyperlipidemia, unspecified; F17.200 Nicotine dependence, unspecified, uncomplicated; Z86.711 Personal history of pulmonary embolism; Z91.013 Allergy to seafood; Z79.82 Long term (current) use of aspirin; Z79.811 Long term (current) use of aromatase inhibitors; Z79.899 Other long term (current) drug therapy

== ENCOUNTER 2023-03-05 10:36 | Emergency (ER) | payer MEDICARE ==
[~2023-03-05] VITALS: Ht 167.6 cm; Wt 56.6 kg
[~2023-03-05 10:36] MED LIST changes: +COLA100C5 PO; +HYDR-3713 PO
[2023-03-05 10:45] VITALS: BP 148/78; TEMP 97.9; O2SAT 99
== END 2023-03-05 12:11 | disposition left against medical advice (07) ==
LOC: M ED 10:36
DX: H61.22 Impacted cerumen, left ear (principal); F17.200 Nicotine dependence, unspecified, uncomplicated; Z91.013 Allergy to seafood

== ENCOUNTER 2023-03-31 15:32 | Emergency (ER) | payer MEDICARE ==
[~2023-03-31] VITALS: Ht 175.3 cm; Wt 56.4 kg
[2023-03-31 15:33] VITALS: TEMP 98.4
[2023-03-31] MEDS ORDERED: ACETAMINOPHEN 325 MG TAB PO ONE (17:55)
[2023-03-31] MEDS ORDERED: MECLIZINE 25 MG TABLET PO ONE (17:55)
[2023-03-31] MEDS ORDERED: MECL-86 PO (19:25)
[2023-03-31] MEDS ORDERED: OXYM15SP2 (19:25)
[2023-03-31 19:30] VITALS: O2SAT 100
[2023-03-31 20:00] VITALS: BP 131/82
[2023-03-31 20:02] VITALS: O2SAT 98
== END 2023-03-31 20:21 | disposition home or self-care (01) ==
LOC: M ED 15:32
DX: H65.01 Acute serous otitis media, right ear (principal); H81.391 Other peripheral vertigo, right ear; I25.2 Old myocardial infarction; E78.5 Hyperlipidemia, unspecified; Z91.013 Allergy to seafood; Z79.1 Long term (current) use of non-steroidal anti-inflammatories (NSAID); Z79.82 Long term (current) use of aspirin; Z79.811 Long term (current) use of aromatase inhibitors; Z79.899 Other long term (current) drug therapy

== ENCOUNTER 2023-05-05 09:44 | Day surgery (SDC) | payer MEDICARE ==
[~2023-05-05] VITALS: Ht 172.7 cm; Wt 58.5 kg
[~2023-05-05 09:44] MED LIST changes: +MECL-86 PO; +OXYM15SP2
[2023-05-05] MEDS: LR 1,000 ML IV SCH (10:30)
[2023-05-05 11:10] LABS: HEMATOCRIT 33.2 % (42.0-52.0); HEMOGLOBIN 11.1 g/dl (13.5-17.5); MEAN CORPUSCULAR HEMOGLOBIN 33.2 pg (27.0-33.0); MEAN CORPUSCULAR HGB CONC 33.4 g/dl (32.0-36.5); MEAN CORPUSCULAR VOLUME 99.4 fl (80.0-96.0); PLATELET COUNT, AUTOMATED 188 10^3/uL (150-450); RED BLOOD COUNT 3.34 10^6/uL (4.30-6.10); WHITE BLOOD COUNT 5.5 10^3/uL (4.0-10.0)
[2023-05-05 11:40] LABS: BLOOD UREA NITROGEN 16 MG/DL (9-23); CARBON DIOXIDE LEVEL 27 MMOL/L (20-31); CHLORIDE LEVEL 115 MMOL/L (98-107); CREATININE FOR GFR 1.23 MG/DL (0.70-1.30); GLOMERULAR FILTRATION RATE > 60.0 (>42); GLUCOSE, FASTING 79 MG/DL (74-106); POTASSIUM SERUM 3.8 MMOL/L (3.5-5.1); SODIUM LEVEL 145 MMOL/L (136-145)
[2023-05-05] MEDS: ceFAZolin SOD 2 GM in IV 1 EA IV ONE (11:43)
[2023-05-05] MEDS ORDERED: MIDAZOLAM INJ 2MG/2ML VIAL As Ordered ONE (11:49)
[2023-05-05] MEDS ORDERED: propofoL 200 MG/20 ML VIAL As Ordered ONE (11:49)
[2023-05-05] MEDS ORDERED: fentaNYL 100 MCG/2 ML INJECTION As Ordered ONE (11:49)
[2023-05-05] MEDS ORDERED: ONDANSETRON 4MG 2ML VIAL As Ordered ONE (11:49)
[2023-05-05] MEDS ORDERED: ROCURONIUM BROMIDE 50MG/5ML VIAL As Ordered ONE (11:49)
[2023-05-05] MEDS ORDERED: ACETAMINOPHEN 1000MG 100ML IV BAG As Ordered ONE (11:49)
[2023-05-05] MEDS ORDERED: SUGAMMADEX SODIUM 500 MG/5 ML VIAL (BRIDION) As Ordered ONE (11:49)
[2023-05-05] MEDS ORDERED: LIDOCAINE 2% 100MG/5ML SDV (FOR ANES.) As Ordered ONE (11:49)
[2023-05-05] MEDS ORDERED: LR 1,000 ML IV SCH (12:50)
[2023-05-05] MEDS ORDERED: fentaNYL 100 MCG/2 ML INJECTION IV PRN (12:50)
[2023-05-05] MEDS ORDERED: HYDROMORPHONE HCL 0.5 MG/ 0.5 ML SYRINGE IV PRN (12:50)
[2023-05-05] MEDS ORDERED: ONDANSETRON 4MG 2ML VIAL IV PRN (12:50)
[2023-05-05] MEDS ORDERED: KETOROLAC 60MG 2ML VIAL As Ordered ONE (13:01)
[2023-05-05] MEDS ORDERED: ePHEDrine SULFATE 25 MG/5 ML(5MG/ML) SYRINGE As Ordered ONE (13:06)
[2023-05-05] MEDS: oxyCODONE 5MG TAB PO PRN (13:47)
[2023-05-05] MEDS ORDERED: traMADol 50 MG TAB PO PRN (14:10)
[2023-05-05] MEDS ORDERED: NS 1,000 ML IV SCH (14:10)
[2023-05-05 15:15] VITALS: BP 163/88; TEMP 97.3; O2SAT 98
== END 2023-05-05 15:30 | disposition home or self-care (01) ==
LOC: M SDC 09:44 → M OPP 09:44
PROVIDERS: ATTEND Surgery
DX: K40.90 Unilateral inguinal hernia, without obstruction or gangrene, not specified as recurrent (principal); I25.10 Atherosclerotic heart disease of native coronary artery without angina pectoris; I10 Essential (primary) hypertension; E78.00 Pure hypercholesterolemia, unspecified; I25.2 Old myocardial infarction; Z79.899 Other long term (current) drug therapy; Z90.49 Acquired absence of other specified parts of digestive tract; F17.210 Nicotine dependence, cigarettes, uncomplicated; Z86.73 Personal history of transient ischemic attack (TIA), and cerebral infarction without residual deficits; Z86.79 Personal history of other diseases of the circulatory system
CPT/HCPCS: 36415; 49650; 80048; 85027; C1781; J0131; J0665; J0690; J1100; J1885; J2250; J2405; J3010

== ENCOUNTER → 2023-06-03 | Outpatient (REF) | payer MEDICARE ==
[2023-06-03 17:06] LABS: BASO # 0.1 10^3/uL (0.0-0.2); BASO % 0.9 % (0.0-1.0); EOS # 0.9 10^3/uL (0.0-0.5); HEMATOCRIT 32.5 % (42.0-52.0); HEMOGLOBIN 10.9 g/dl (13.5-17.5); LYMPH # 2.5 10^3/uL (1.5-5.0); LYMPH % 36.4 % (24.0-44.0); MEAN CORPUSCULAR HEMOGLOBIN 32.6 pg (27.0-33.0); MEAN CORPUSCULAR HGB CONC 33.5 g/dl (32.0-36.5); MEAN CORPUSCULAR VOLUME 97.3 fl (80.0-96.0); MONO # 0.5 10^3/uL (0.0-0.8); NEUTROPHILS # 2.8 10^3/uL (1.5-8.5); NEUTROPHILS % 41.6 % (36.0-66.0); PLATELET COUNT, AUTOMATED 238 10^3/uL (150-450); RED BLOOD COUNT 3.34 10^6/uL (4.30-6.10); WHITE BLOOD COUNT 6.8 10^3/uL (4.0-10.0)
[2023-06-03 17:18] LABS: ALBUMIN 3.1 G/DL (3.2-5.2); ALKALINE PHOSPHATASE 93 U/L (46-116); ALT/SGPT 17 U/L (7.0-40); AST/SGOT 22 U/L (<34); BILIRUBIN,TOTAL 0.4 MG/DL (0.3-1.2); BLOOD UREA NITROGEN 15 MG/DL (9-23); CALCIUM LEVEL 7.8 MG/DL (8.3-10.6); CARBON DIOXIDE LEVEL 23 MMOL/L (20-31); CHLORIDE LEVEL 114 MMOL/L (98-107); CREATININE FOR GFR 1.15 MG/DL (0.70-1.30); GLOMERULAR FILTRATION RATE > 60.0 (>42); GLUCOSE, FASTING 86 MG/DL (74-106); SODIUM LEVEL 142 MMOL/L (136-145); TOTAL PROTEIN 6.2 G/DL (5.7-8.2)
[2023-06-03 17:21] LABS: FREE T4 0.71 NG/DL (0.89-1.76)
== END ==
LOC: M LAB REF 16:24
PROVIDERS: ATTEND Family Medicine Addiction Medicine
DX: R42 Dizziness and giddiness (principal); Z79.899 Other long term (current) drug therapy

== ENCOUNTER → 2023-06-19 | Outpatient (REF) | payer MEDICARE, MEDICAID ==
[2023-06-19 16:38] LABS: BASO % 0.5 % (0.0-1.0); EOS # 0.5 10^3/uL (0.0-0.5); EOS % 8.6 % (0.0-3.0); HEMATOCRIT 32.9 % (42.0-52.0); HEMOGLOBIN 10.7 g/dl (13.5-17.5); LYMPH # 2.2 10^3/uL (1.5-5.0); LYMPH % 39.9 % (24.0-44.0); MEAN CORPUSCULAR HEMOGLOBIN 33.3 pg (27.0-33.0); MEAN CORPUSCULAR HGB CONC 32.5 g/dl (32.0-36.5); MEAN CORPUSCULAR VOLUME 102.5 fl (80.0-96.0); MONO # 0.5 10^3/uL (0.0-0.8); MONO % 8.8 % (2.0-8.0); NEUTROPHILS # 2.3 10^3/uL (1.5-8.5); PLATELET COUNT, AUTOMATED 231 10^3/uL (150-450); RED BLOOD COUNT 3.21 10^6/uL (4.30-6.10); WHITE BLOOD COUNT 5.5 10^3/uL (4.0-10.0)
[2023-06-19 17:03] LABS: IRON (FE) 34 UG/DL (65-175)
[2023-06-19 17:05] LABS: VITAMIN B12 LEVEL 353 PG/ML (211-911)
== END ==
LOC: M LAB REF 16:14
PROVIDERS: ATTEND Family Medicine Addiction Medicine
DX: E83.51 Hypocalcemia (principal); D64.9 Anemia, unspecified

== ENCOUNTER 2023-10-05 11:47 | Emergency (ER) | payer MEDICARE, MEDICAID ==
[~2023-10-05] VITALS: Ht 172.7 cm; Wt 54.8 kg
[2023-10-05 12:42] LABS: BASO # 0.1 10^3/uL (0.0-0.2); BASO % 0.8 % (0.0-1.0); EOS # 0.3 10^3/uL (0.0-0.5); EOS % 4.5 % (0.0-3.0); HEMATOCRIT 34.7 % (42.0-52.0); HEMOGLOBIN 11.7 g/dl (13.5-17.5); LYMPH # 2.2 10^3/uL (1.5-5.0); LYMPH % 29.7 % (24.0-44.0); MEAN CORPUSCULAR HEMOGLOBIN 33.3 pg (27.0-33.0); MEAN CORPUSCULAR HGB CONC 33.7 g/dl (32.0-36.5); MEAN CORPUSCULAR VOLUME 98.9 fl (80.0-96.0); MONO # 0.7 10^3/uL (0.0-0.8); NEUTROPHILS # 4.1 10^3/uL (1.5-8.5); NEUTROPHILS % 55.7 % (36.0-66.0); PLATELET COUNT, AUTOMATED 230 10^3/uL (150-450); RED BLOOD COUNT 3.51 10^6/uL (4.30-6.10); WHITE BLOOD COUNT 7.4 10^3/uL (4.0-10.0)
[2023-10-05] MEDS: ACETAMINOPHEN *IV* 1,000 MG in IV 1 EA IV ONE (12:44)
[2023-10-05 12:57] LABS: ALBUMIN 3.1 G/DL (3.2-5.2); BILIRUBIN,DIRECT 0.2 MG/DL (<0.4); BILIRUBIN,TOTAL 0.5 MG/DL (0.3-1.2); CALCIUM LEVEL 8.6 MG/DL (8.3-10.6); CREATININE FOR GFR 1.31 MG/DL (0.70-1.30); GLOMERULAR FILTRATION RATE 56.6 (>42); TOTAL PROTEIN 6.2 G/DL (5.7-8.2)
[2023-10-05] MEDS ORDERED: ISOVUE-370 76% 100ML VIAL As Ordered ONE (13:23)
[2023-10-05 15:13] VITALS: BP 122/69; TEMP 97; O2SAT 100
== END 2023-10-05 15:48 | disposition home or self-care (01) ==
LOC: M ED 11:47
DX: K40.90 Unilateral inguinal hernia, without obstruction or gangrene, not specified as recurrent (principal); I70.8 Atherosclerosis of other arteries; K82.8 Other specified diseases of gallbladder; I10 Essential (primary) hypertension; E78.5 Hyperlipidemia, unspecified; R51.9 Headache, unspecified; F17.200 Nicotine dependence, unspecified, uncomplicated; Z86.718 Personal history of other venous thrombosis and embolism; Z86.79 Personal history of other diseases of the circulatory system; Z91.013 Allergy to seafood; Z79.811 Long term (current) use of aromatase inhibitors; Z79.899 Other long term (current) drug therapy
CPT/HCPCS: 74177; 80048; 80076; 83690; 85025; 96374; 99284; J0131; Q9967

== ENCOUNTER → 2023-10-09 | Outpatient (CLI) | payer MEDICARE, MEDICAID | LOC: M PLARAD 11:30 | PROVIDERS: ATTEND Family Medicine Addiction Medicine | DX: R93.89 Abnormal findings on diagnostic imaging of other specified body structures (principal); R42 Dizziness and giddiness; R90.82 White matter disease, unspecified; J34.89 Other specified disorders of nose and nasal sinuses ==

== ENCOUNTER → 2024-01-29 | Outpatient (CLI) | payer MEDICARE, MEDICAID ==
[2024-01-29 11:50] LABS: ALKALINE PHOSPHATASE 101 U/L (40-129); ALT/SGPT 25 U/L (7.0-40); AST/SGOT 32 U/L (<34); BILIRUBIN,TOTAL 0.3 MG/DL (0.3-1.2); BLOOD UREA NITROGEN 18 MG/DL (9-23); CALCIUM LEVEL 8.6 MG/DL (8.3-10.6); CARBON DIOXIDE LEVEL 28 MMOL/L (20-31); CHLORIDE LEVEL 113 MMOL/L (98-107); CREATININE FOR GFR 1.22 MG/DL (0.70-1.30); GLOMERULAR FILTRATION RATE > 60.0 (>42); GLUCOSE, FASTING 81 MG/DL (74-106); POTASSIUM SERUM 4.5 MMOL/L (3.5-5.1); SODIUM LEVEL 142 MMOL/L (136-145); TOTAL PROTEIN 6.2 G/DL (5.7-8.2)
== END ==
LOC: M LAB 10:26
PROVIDERS: ATTEND Nurse Practitioner
DX: R73.09 Other abnormal glucose (principal); R42 Dizziness and giddiness; R29.6 Repeated falls; R26.81 Unsteadiness on feet

== ENCOUNTER → 2024-02-10 | Outpatient (CLI) | payer MEDICARE, MEDICAID ==
[~2024-02-10] MED LIST changes: +ISOVUE-370 76% 100ML VIAL As Ordered ONE
== END ==
LOC: M RAD 10:47
PROVIDERS: ATTEND Nurse Practitioner
DX: R42 Dizziness and giddiness (principal); I10 Essential (primary) hypertension; R26.81 Unsteadiness on feet; R29.6 Repeated falls; Z86.79 Personal history of other diseases of the circulatory system
CPT/HCPCS: 70496; 70498; Q9967

== ENCOUNTER 2024-03-01 10:07 | Outpatient (RCR) | payer MEDICARE, MEDICAID ==
[~2024-03-01 10:07] MED LIST changes: -ISOVUE-370 76% 100ML VIAL As Ordered ONE
== END 2024-03-05 | disposition still patient (30) ==
LOC: M PT 10:07
PROVIDERS: ATTEND Nurse Practitioner
DX: R42 Dizziness and giddiness (principal); R26.89 Other abnormalities of gait and mobility; R29.6 Repeated falls

== ENCOUNTER 2024-03-21 12:40 | Outpatient (RCR) | payer MEDICARE, MEDICAID | END 2024-04-05 | LOC: M PT 12:40 | PROVIDERS: ATTEND Nurse Practitioner | DX: R29.6 Repeated falls (principal); R26.81 Unsteadiness on feet; R42 Dizziness and giddiness ==

== ENCOUNTER 2024-04-21 12:12 | Outpatient (RCR) | payer MEDICARE, MEDICAID | END 2024-05-06 | LOC: M PT 12:12 | PROVIDERS: ATTEND Nurse Practitioner | DX: R42 Dizziness and giddiness (principal); R29.6 Repeated falls; R26.81 Unsteadiness on feet ==

== ENCOUNTER → 2024-05-04 | Outpatient (CLI) | payer MEDICARE, MEDICAID ==
[2024-05-04 11:01] LABS: CHOLESTEROL RISK RATIO 3.49 (<5); HDL CHOLESTEROL 25.5 MG/DL (>40); LDL CHOLESTEROL 48.5 MG/DL (<100); NON-HDL-C 63.5 MG/DL
== END ==
LOC: M LAB 09:47
PROVIDERS: ATTEND Physician Assistant
DX: I25.10 Atherosclerotic heart disease of native coronary artery without angina pectoris (principal); I25.3 Aneurysm of heart; R06.02 Shortness of breath

== ENCOUNTER → 2024-07-29 | Outpatient (REF) | payer MEDICARE, MEDICAID ==
[2024-07-29 13:09] LABS: ALBUMIN 3.4 G/DL (3.2-5.2); BILIRUBIN,TOTAL 0.2 MG/DL (0.3-1.2); CALCIUM LEVEL 8.4 MG/DL (8.3-10.6); CHOLESTEROL RISK RATIO 4.34 (<5); CREATININE FOR GFR 1.29 MG/DL (0.70-1.30); GLOMERULAR FILTRATION RATE 57.1 (>42); HDL CHOLESTEROL 22.8 MG/DL (>40); NON-HDL-C 76.2 MG/DL; TOTAL PROTEIN 6.8 G/DL (5.7-8.2)
[2024-07-29 13:12] LABS: THYROID STIMULATING HORMONE 2.032 uIU/ML (0.55-4.78)
== END ==
LOC: M LAB REF 12:37
PROVIDERS: ATTEND Family Medicine Addiction Medicine
DX: I10 Essential (primary) hypertension (principal)

== ENCOUNTER → 2024-09-01 | Outpatient (CLI) | payer MEDICARE, MEDICAID | LOC: M EKG 13:24 | PROVIDERS: ATTEND Physician Assistant | DX: I44.0 Atrioventricular block, first degree (principal); I44.4 Left anterior fascicular block; R94.31 Abnormal electrocardiogram [ECG] [EKG] ==

== ENCOUNTER → 2024-10-13 | Outpatient (CLI) | payer MEDICARE, MEDICAID | LOC: M RAD 14:57 | PROVIDERS: ATTEND Family Medicine Addiction Medicine | DX: M47.816 Spondylosis without myelopathy or radiculopathy, lumbar region (principal); M54.50 Low back pain, unspecified; G89.29 Other chronic pain ==

== ENCOUNTER → 2025-01-17 | Outpatient (CLI) | payer MEDICARE, MEDICAID | LOC: M CARPUL 14:05 | PROVIDERS: ATTEND Physician Assistant | DX: I77.810 Thoracic aortic ectasia (principal) ==

== ENCOUNTER 2025-03-17 12:25 | Emergency (ER) | payer MEDICARE, MEDICAID ==
[~2025-03-17 12:25] MED LIST changes: -MECL-209 PO
[2025-03-17 12:29] VITALS: TEMP 98.6
[2025-03-17 14:11] LABS: BASO # 0.0 10^3/uL (0.0-0.2); BASO % 0.6 % (0.0-1.0); EOS # 0.4 10^3/uL (0.0-0.5); EOS % 7.0 % (0.0-3.0); LYMPH # 1.6 10^3/uL (1.5-5.0); LYMPH % 30.4 % (24.0-44.0); MONO # 0.5 10^3/uL (0.0-0.8); MONO % 9.6 % (2.0-8.0); NEUTROPHILS # 2.8 10^3/uL (1.5-8.5); NEUTROPHILS % 52.2 % (36.0-66.0); PLATELET COUNT, AUTOMATED 158 10^3/uL (150-450)
[2025-03-17 14:29] LABS: OSMOLALITY SERUM 304.0 MOSM/KG (280-301)
[2025-03-17 14:32] LABS: ALT/SGPT 28.0 U/L (7.0-40); AST/SGOT 34.0 U/L (<34); CALCIUM LEVEL 7.8 MG/DL (8.3-10.6); CARBON DIOXIDE LEVEL 26.0 MMOL/L (20-31); CHLORIDE LEVEL 115.0 MMOL/L (98-107); CREATININE FOR GFR 1.37 MG/DL (0.70-1.30); GLOMERULAR FILTRATION RATE 53.1 (>42); POTASSIUM SERUM 4.5 MMOL/L (3.5-5.1); SODIUM LEVEL 145.0 MMOL/L (136-145)
[2025-03-17] MEDS: MECLIZINE 25 MG TABLET PO ONE (15:50)
[2025-03-17] MEDS: NS (Normal Saline) 0.9% 1,000 ML IV ONE (15:52)
[2025-03-17 18:01] VITALS: BP 128/74
[2025-03-17 18:46] VITALS: O2SAT 94
[2025-03-17] MEDS ORDERED: MECL-209 PO (18:53)
== END 2025-03-17 19:10 | disposition home or self-care (01) ==
LOC: M ED 12:25
DX: H81.4 Vertigo of central origin (principal); I70.0 Atherosclerosis of aorta; J98.6 Disorders of diaphragm; I49.1 Atrial premature depolarization; I45.81 Long QT syndrome; I25.2 Old myocardial infarction; I10 Essential (primary) hypertension; I63.9 Cerebral infarction, unspecified; Z86.79 Personal history of other diseases of the circulatory system; Z86.718 Personal history of other venous thrombosis and embolism; Z91.013 Allergy to seafood; Z79.1 Long term (current) use of non-steroidal anti-inflammatories (NSAID); Z79.899 Other long term (current) drug therapy

== ENCOUNTER → 2025-03-17 | Outpatient (REF) | payer MEDICARE, MEDICAID ==
[~2025-03-17] MED LIST changes: +MECL-209 PO
== END ==
LOC: M LAB REF 16:52
PROVIDERS: ATTEND Physician Assistant
DX: I63.9 Cerebral infarction, unspecified (principal)